=== PATIENT | female | born 1970 | race Caucasian/White ===

== ENCOUNTER → 2016-09-29 | Outpatient (CLI) | payer BC, OTHER ==
[2016-09-29 18:02] LABS: BASO % 0.4 %; BASO ABS # 0.04 K/uL (0-0.2); COMPLETE YES; EOS % 1.8 %; HEMATOCRIT 47.3 % (37-47); IG% 0.4 %; LYMPH % 33.3 %; LYMPH ABS # 3.16 K/uL (1.2-3.4); MEAN CELL VOLUME 92.6 fL (80-100); MEAN CORPUSCULAR HEMOGLOBIN 31.5 pg (25-34); MEAN PLATELET VOLUME 10.2 fL (7.4-10.4); MONO % 5.1 %; PLATELET COUNT 263 K/uL (130-400); RED BLOOD COUNT 5.11 M/uL (4.2-5.4); WHITE BLOOD COUNT 9.48 K/uL (4.8-10.8)
[2016-09-29 18:06] LABS: ALT/SGPT 34 U/L (12-78); AST/SGOT 12 U/L (15-37); BLOOD UREA NITROGEN 11 mg/dl (7-18); BUN/CREATININE RATIO 12.4 (10-20); CALCIUM 8.8 mg/dl (8.5-10.1); CARBON DIOXIDE 29 mmol/L (21-32); CHLORIDE 105 mmol/L (98-107); CHOLESTEROL 166 mg/dl (0-200); CREATININE 0.88 mg/dl (0.60-1.20); GLUCOSE 245 mg/dl (70-99); POTASSIUM 4.1 mmol/L (3.5-5.1); SODIUM 139 mmol/L (136-145)
[2016-09-29 18:14] LABS: ALB/GLOB RATIO 1.3 (0.9-2); ALKALINE PHOSPHATASE 106 U/L (45-117); CHOLESTEROL/HDL RATIO 3.8; HDL CHOLESTEROL 44 mg/dl; LDL CHOLESTEROL CALCULATED 75 mg/dl; TRIGLYCERIDES 235 mg/dl (0-150); VERY LOW DENSITY LIPOPROT CALC 47 mg/dl
[2016-09-29 18:20] LABS: RATIO 9.9 mcg/mg (0-30.0)
[2016-09-30 06:19] LABS: ESTIMATED AVERAGE GLUCOSE 223 mg/dl; HA1C FLAG Normal (Normal)
== END | disposition home or self-care (01) ==
LOC: C.LABMFLN 11:34
PROVIDERS: ATTEND Family Medicine
DX: E11.9 Type 2 diabetes mellitus without complications (principal); E78.5 Hyperlipidemia, unspecified

== ENCOUNTER → 2017-05-14 | Outpatient (CLI) | payer BC ==
[2017-05-14 18:31] LABS: BLOOD UREA NITROGEN 10 mg/dl (7-18); BUN/CREATININE RATIO 11.7 (10-20); CALCIUM 9.3 mg/dl (8.5-10.1); CARBON DIOXIDE 28 mmol/L (21-32); CHLORIDE 99 mmol/L (98-107); CREATININE 0.82 mg/dl (0.60-1.20); GLUCOSE 263 mg/dl (70-99); PHOSPHORUS 3.1 mg/dl (2.5-4.9); POTASSIUM 4.4 mmol/L (3.5-5.1); SODIUM 132 mmol/L (136-145)
[2017-05-15 07:37] LABS: ESTIMATED AVERAGE GLUCOSE 243 mg/dl; HA1C FLAG Normal (Normal)
== END | disposition home or self-care (01) ==
LOC: C.LABMFLN 15:43
PROVIDERS: ATTEND Family Medicine
DX: E11.9 Type 2 diabetes mellitus without complications (principal)

== ENCOUNTER → 2017-06-19 | Day surgery (SDC) | payer BC ==
[2017-05-30 13:47] VITALS: Ht 165.1 cm; Wt 121.4 kg
[~2017-06-19] VITALS: Ht 165.1 cm; Wt 121.4 kg
[~2017-06-19] MED LIST: ATOR10TA82 PO; ATROPINE SULFATE 0.1 MG/ML 5ML SYR IV PRN; BUPIVACAINE 0.5 % 5 MG/1 ML PF 10ML VIAL ONE; CEFAZOLIN 3000MG IV PUSH 15 ML IV SCH; CEFAZOLIN SOD 1000MG/5 ML IV PUSH IV ONE; CEFAZOLIN SOD 2000MG/10 ML IV PUSH IV ONE; CHN/1 PO; CLX/20 PO; DULA1INJ SQ; FENTANYL CITRATE INJ 50 MCG/1 ML 2 ML VIAL ONE; LACTATED RINGER'S 1000ML 1,000 ML IV SCH; LIDOCAINE HCL 1% 20 ML VIAL ONE; LISI-461 PO; MIDAZOLAM HCL 1 MG/ML 2ML VIAL ONE; ONDANSETRON INJ 2 MG/ML 2 ML VIAL IV PRN; OXYCODONE/ACETAMINOPHEN 5-325 TAB PO PRN; PROPOFOL IV EMULSION 10 MG/ML 20 ML VIAL IV ONE; SITA100T3 PO; SODIUM CHLORIDE 0.9% 1000ML 1,000 ML IV SCH; TRAM-10 PO
--- NOTE | 2017-06-19 07:16 | History & Physical Bridge - [place] ---
H&P Re-Evaluation Bridge Note: I have examined the patient, reviewed the History & Physical and in the interval since the performance of the History & Physical I have noted the following changes of clinical significance: No changes noted
--- NOTE | 2017-06-19 08:07 | [facility] Post Operative Brief Note ---
Immediate Operative Summary Operative Date Jun 19, 2017. Pre-Operative Diagnosis Right Carpal Tunnel Syndrome Post-Operative Diagnosis Same Procedure(s) Performed Right Carpal Tunnel Release Surgeon Dr. Helen Prakash Relocation Services Specialist Surgeon(s) Alonzo Thapa PA-c Estimated Blood Loss 0 Findings ABOVE Specimens None Anesthesia LOCAL IV SEDATION Complication(s) None Disposition
[2017-06-19 08:11] VITALS: TEMP 36.2
--- NOTE | 2017-06-19 08:11 | Discharge Instructions-SurgCtr ---
Discharge Instructions Date of Service Jun 19, 2017. Visit Reason for Visit: Right Carpal Tunnel Syndrome Discharge Discharge Diagnosis / Problem: SAME ABOVE Discharge Goals Goal(s): Decrease discomfort, Improve function Medications Stopped Medications Name(s): Mar Last dose Sunday. Activity Recommendations Activity Limitations: as noted below Lifting Limitations: until after follow-up appointment Exercise/Sports Limitations: until after follow-up appointment Shower/Bathe: keep incision dry Anesthesia . Post Anesthesia Instructions: If you have had General Anesthesia or IV Sedation: * Do not drive today. * Resume driving when surgeon permits. * Do not make important decisions or sign legal documents today. * Call surgeon for: 1. Temperature elevations greater than 101 degrees F. 2. Uncontrollable pain. 3. Excessive bleeding. 4. Persistent nausea and vomiting. 5. Medication intolerance (nausea, vomiting or rash). * For nausea and vomiting use only clear liquids such as: tea, soda, bouillon until nausea subsides, then gradually increase diet as tolerated. * If you have any concerns or questions, call your surgeon's office. If physician is unavailable and it is an emergency, call 911 or go to the nearest emergency room. . Instructions / Follow-Up Instructions / Follow-Up MEDICATIONS: * Resume previous medications unless instructed otherwise by your surgeon. * Always take pain medication on a full stomach or with food to avoid upset stomach. * Do not drink alcohol or drive while taking narcotics. * Ibuprofen or Tylenol may be taken if narcotic not needed. SPECIAL CARE INSTRUCTIONS: __ None _X_ Keep extremity elevated and iced x 48 hours; apply ice 20-30 minutes 8-10 times/day. May remove at night. __ Sling __24 hrs/day __ Remove at night __ Shoulder Immobilizer __ 24 hrs/day __ Remove at night _X_ Dressing _X_ Maintain until seen in office, may shower with plastic over site __ Remove dressings in 24-48 hours and then may shower __ Cover incisions with band-aids after showering __ Do not remove steri-strips Call physician if chills or temperature rises above 102 degrees or pain unrelieved by prescribed pain medications at . . Diet Recommendations Home Diet: resume previous diet Procedures Procedures Performed: Right Carpal Tunnel Release Pending Studies Studies pending at discharge: no Medical Emergencies . Who to Call and When: Medical Emergencies: If at any time you feel your situation is an emergency, please call 911 immediately. . Non-Emergent Contact Non-Emergency issues call your: Primary Care Provider . . "Provider Documentation" section prepared by Alberto Thapa. .
--- NOTE | 2017-06-19 08:24 | OPERATIVE REPORT ---
DATE OF OPERATION: 06/19/2017 PREOPERATIVE DIAGNOSIS: Right carpal tunnel syndrome. POSTOPERATIVE DIAGNOSIS: Same. PROCEDURE: Decompression median nerve, released transverse carpal ligament, right wrist. SURGEON: Thomas Prakash MD. BRIDGE INSTRUCTOR: Alberto Thapa PA-C. ANESTHESIOLOGIST: Florencio Mondragon MD. ANESTHESIA: Local with IV sedation. DRAINS: None. COMPLICATIONS: None. CONDITION: The patient tolerated the procedure well and returned to recovery in apparent satisfactory condition. INDICATIONS FOR SURGERY: Devora is a 47-year-old female who has had increasing pain, numbness and tingling in her right hand consistent with carpal tunnel complaints. We went over treatment options and elected to go ahead and proceed with surgery. Procedure, expected outcomes and side effects were all explained in detail. PROCEDURE: The patient was taken to the OR at which time she was placed supine on the operating table. The right hand was prepped and draped in the usual sterile fashion for this surgery. The anticipated incision site was infiltrated with 1% Xylocaine. A forearm tourniquet was placed on the arm and tourniquet was placed up to 250 mmHg. Incision was made vertically over the transverse carpal tunnel ligament. Dissection was done down until the palmar fascia was identified and divided with a 15-blade. The transverse carpal ligament was identified and also divided with the 15-blade and upbiting scissors. A small portion of the forearm fascia was divided also. Electrocautery was used to control any areas of bleeding. The nerve was freed up from any scar tissue and adequately decompressed. The wound then was copiously irrigated. It was closed then with interrupted 4-0 nylon sutures. Marcaine without Epinephrine was placed in the skin edges. It was closed in a layered fashion. We placed a sterile dressing of Xeroform, 4 x 4, volar splint, and an Donis bandage. DISPOSITION: The patient was returned back to the recovery room in apparent satisfactory condition. I attest to the content of the Intraoperative Record and any orders documented therein. Any exception s are noted below.
[2017-06-19 08:35] VITALS: BP 112/78; PULSE 84; O2SAT 94
--- NOTE | 2017-06-19 08:43 | Anesthesia Progress Nt - [facility] ---
Anesthesia Post Op Note Date & Time Jun 19, 2017 at 08:43 Vital Signs Pain Intensity: 0 Vital Signs Past 12 Hours Date Time Temp Pulse Resp B/P (MAP) Pulse Ox O2 Delivery O2 Flow Rate FiO2 06/19/17 08:35 84 16 112/78 (89) 94 Room Air 06/19/17 08:11 36.2 91 16 98/56 (70) 95 Room Air 06/19/17 07:30 36.8 96 16 132/78 (96) 96 Room Air Notes Mental Status: alert / awake / arousable, participated in evaluation Pt Amnestic to Procedure: Yes Nausea / Vomiting: adequately controlled Pain: adequately controlled Airway Patency, RR, SpO2: stable & adequate BP & HR: stable & adequate Hydration State: stable & adequate Anesthetic Complications: no major complications apparent
== END | disposition home or self-care (01) ==
LOC: X.SURG 06:54
PROVIDERS: ATTEND Orthopaedic Surgery
DX: G56.01 Carpal tunnel syndrome, right upper limb (principal); I10 Essential (primary) hypertension; E11.9 Type 2 diabetes mellitus without complications; E78.00 Pure hypercholesterolemia, unspecified; Z91.040 Latex allergy status; Z90.710 Acquired absence of both cervix and uterus; Z98.890 Other specified postprocedural states

== ENCOUNTER → 2017-07-17 | Day surgery (SDC) | payer BC ==
[2017-07-03 09:50] VITALS: Ht 165.1 cm; Wt 121.4 kg
[~2017-07-17] VITALS: Ht 165.1 cm; Wt 121.4 kg
[~2017-07-17] MED LIST changes: -CEFAZOLIN 3000MG IV PUSH 15 ML IV SCH; +CEFAZOLIN 3000MG IV PUSH 22.5 ML IV SCH; -CEFAZOLIN SOD 1000MG/5 ML IV PUSH IV ONE; -CEFAZOLIN SOD 2000MG/10 ML IV PUSH IV ONE; +EpHEDrine SULFATE INJ 50 MG/ML AMP IV PRN; +LIDOCAINE HCL 2% 2 ML VIAL (20MG/ML) ONE; +ONDANSETRON INJ 2 MG/ML 2 ML VIAL ONE
--- NOTE | 2017-07-17 10:10 | [facility] Post Operative Brief Note ---
Immediate Operative Summary Operative Date Jul 17, 2017. Pre-Operative Diagnosis Left Carpal Tunnel Syndrome Post-Operative Diagnosis Same Procedure(s) Performed Left Carpal Tunnel Release Surgeon Dr. Prakash Transcripter Surgeon(s) Alonzo Thapa PA-C Estimated Blood Loss 0 ml Findings Consistent with Post-Op Diagnosis Specimens None Drains None Anesthesia Type MAC Disposition Disposition:
--- NOTE | 2017-07-17 10:13 | Discharge Instructions-SurgCtr ---
Discharge Instructions Date of Service Jul 17, 2017. Visit Reason for Visit: Left Carpal Tunnel Syndrome Discharge Discharge Diagnosis / Problem: SAME ABOVE Discharge Goals Goal(s): Decrease discomfort, Improve function Activity Recommendations Activity Limitations: as noted below Lifting Limitations: until after follow-up appointment Exercise/Sports Limitations: until after follow-up appointment Shower/Bathe: keep incision dry Anesthesia . Post Anesthesia Instructions: If you have had General Anesthesia or IV Sedation: * Do not drive today. * Resume driving when surgeon permits. * Do not make important decisions or sign legal documents today. * Call surgeon for: 1. Temperature elevations greater than 101 degrees F. 2. Uncontrollable pain. 3. Excessive bleeding. 4. Persistent nausea and vomiting. 5. Medication intolerance (nausea, vomiting or rash). * For nausea and vomiting use only clear liquids such as: tea, soda, bouillon until nausea subsides, then gradually increase diet as tolerated. * If you have any concerns or questions, call your surgeon's office. If physician is unavailable and it is an emergency, call 911 or go to the nearest emergency room. . Instructions / Follow-Up Instructions / Follow-Up MEDICATIONS: * Resume previous medications unless instructed otherwise by your surgeon. * Always take pain medication on a full stomach or with food to avoid upset stomach. * Do not drink alcohol or drive while taking narcotics. * Ibuprofen or Tylenol may be taken if narcotic not needed. SPECIAL CARE INSTRUCTIONS: __ None _X_ Keep extremity elevated and iced x 48 hours; apply ice 20-30 minutes 8-10 times/day. May remove at night. __ Sling __24 hrs/day __ Remove at night __ Shoulder Immobilizer __ 24 hrs/day __ Remove at night _X_ Dressing _X_ Maintain until seen in office, may shower with plastic over site __ Remove dressings in 24-48 hours and then may shower __ Cover incisions with band-aids after showering __ Do not remove steri-strips Call physician if chills or temperature rises above 102 degrees or pain unrelieved by prescribed pain medications at . . Diet Recommendations Home Diet: no limitations Procedures Procedures Performed: Left Carpal Tunnel Release Pending Studies Studies pending at discharge: no Medical Emergencies . Who to Call and When: Medical Emergencies: If at any time you feel your situation is an emergency, please call 911 immediately. . Non-Emergent Contact Non-Emergency issues call your: Primary Care Provider . . "Provider Documentation" section prepared by Alberto Thapa. .
--- NOTE | 2017-07-17 10:24 | OPERATIVE REPORT ---
DATE OF OPERATION: 07/17/2017 PREOPERATIVE DIAGNOSIS: Left carpal tunnel syndrome. POSTOPERATIVE DIAGNOSIS: Left carpal tunnel syndrome. PROCEDURE: Decompression median nerve release transverse carpal ligament, left wrist. SURGEON: Thomas Prakash MD DIRECTOR OF AGRICULTURE: Alberto Thapa PA-C. ANESTHESIOLOGIST: Dr. Parker. ANESTHESIA: Local with IV sedation. DRAINS: None. COMPLICATIONS: None. CONDITION: The patient tolerated the procedure well, returned to the recovery room in apparent satisfactory condition. INDICATIONS FOR SURGERY: Devora is a 47-year-old female who presents back now with left carpal tunnel complaints. We did a right hand about 6-7 weeks ago, presents to have left hand done. Procedure, expected outcomes and side effects were all explained in detail. PROCEDURE: The patient was taken to the OR at which time she was placed supine on the operating table. The left hand was prepped and draped in the usual sterile fashion for this surgery. The anticipated incision site was infiltrated with 1% Xylocaine. A forearm tourniquet was placed on the arm and tourniquet was placed up to 250 mmHg. Incision was made vertically over the transverse carpal tunnel ligament. Dissection was done down until the palmar fascia was identified and divided with a 15-blade. The transverse carpal ligament was identified and also divided with the 15-blade and upbiting scissors. A small portion of the forearm fascia was divided also. Electrocautery was used to control any areas of bleeding. The nerve was freed up from any scar tissue and adequately decompressed. The wound then was copiously irrigated. It was closed then with interrupted 4-0 nylon sutures. Marcaine without Epinephrine was placed in the skin edges. It was closed in a layered fashion. We placed a sterile dressing of Xeroform, 4 x 4, volar splint, and an Donis bandage. DISPOSITION: The patient was returned back to the recovery room in apparent satisfactory condition. I attest to the content of the Intraoperative Record and any orders documented therein. Any exception s are noted below.
--- NOTE | 2017-07-17 10:25 | Anesthesia Progress Nt - [facility] ---
Anesthesia Post Op Note Date & Time Jul 17, 2017 at 10:25 Vital Signs Pain Intensity: 0 Vital Signs Past 12 Hours Date Time Temp Pulse Resp B/P (MAP) Pulse Ox O2 Delivery O2 Flow Rate FiO2 07/17/17 10:13 36.1 87 16 122/77 (92) 94 Room Air 07/17/17 08:44 36.5 79 16 134/89 (104) 95 Room Air Notes Mental Status: alert / awake / arousable, participated in evaluation Pt Amnestic to Procedure: Yes Nausea / Vomiting: adequately controlled Pain: adequately controlled Airway Patency, RR, SpO2: stable & adequate BP & HR: stable & adequate Hydration State: stable & adequate Anesthetic Complications: no major complications apparent
[2017-07-17 10:35] VITALS: BP 125/80; PULSE 80; TEMP 36.8; O2SAT 95
== END | disposition home or self-care (01) ==
LOC: X.SURG 08:12
PROVIDERS: ATTEND Orthopaedic Surgery
DX: G56.02 Carpal tunnel syndrome, left upper limb (principal); E11.9 Type 2 diabetes mellitus without complications; E66.9 Obesity, unspecified; I10 Essential (primary) hypertension; F17.200 Nicotine dependence, unspecified, uncomplicated; Z90.710 Acquired absence of both cervix and uterus

== ENCOUNTER 2025-05-12 13:33 | Inpatient (IN) ==
[2025-05-12] MEDS ORDERED: VANCOMYCIN CONSULT ACTIVE PRN (13:43)
[2025-05-12] MEDS: cefTRIAXone SODIUM 2,000 MG/50 ML BAG IV STA (14:03)
[2025-05-12 14:15] LABS: Hematocrit (blood only) 46.1 % (37.0-47.0); Hemoglobin 15.9 g/dL (12.0-16.0); Immature Granulocytes # (auto) 0.06 K/uL (0.01-0.20); Immature Granulocytes % (auto) 0.6 %; Mean Corpuscular Hemoglobin 31.8 pg (25.0-34.0); Mean Corpuscular Volume 92.2 fL (80.0-100.0); Platelet Count 227 K/uL (130-400); RDW Standard Deviation 42.0 fL (36.4-46.3); Red Blood Count 5.00 M/uL (4.20-5.40); White Blood Count 9.37 K/ul (4.8-10.8)
--- NOTE | 2025-05-12 14:25 | Emergency Department Note ---
Impression & Plan Osteomyelitis, Necrosis of toe, Dry gangrene ED Provider Note NAME: BLAZE CHU AGE: 55 SEX: F : 1970 ARRIVES VIA: Walk-In INFORMANT: Patient, daughter ED PROVIDER(S): Braxton Ramirez DO CHIEF COMPLAINT: Toe necrosis HPI: This is a 55-year-old female with the PMHx of hypertension, hyperlipidemia, IDDM2, GERD and anxiety presenting to [facility] for further evaluation of necrosis of the toe. Patient is accompanied by her daughter who provide additional history. Patient states that she was recently in the emergency department. She ultimately left AGAINST MEDICAL ADVICE. She states that she has been on antibiotics for her necrosis of her toe. She states some of the redness is seem to worsen. She does have mild pain. Patient states that she had to take care of things at work prior to arranging an patient hospital stay. She is agreeable to stay in the hospital at this time.. They deny fever or chills. No cough or congestion. Denies chest pain or palpitations. No shortness of breath. They deny abdominal pain, nausea and vomiting. No urinary complaints. No recent changes in bowel movements. Patient denies recent changes in medications or OTC supplements. Patient offers no other complaints, today. ADDITIONAL HISTORY OBTAINED: Per HPI Chronic Medical/Social Conditions Affecting Care: Per HPI PAST MEDICAL HISTORY: See Below PAST SURGICAL HISTORY: See Below FAMILY HISTORY: See Below SOCIAL HISTORY: See Below HOME MEDICATIONS: See Below ALLERGIES: See Below VITALS: See Below PHYSICAL EXAMINATION: GENERAL: Sitting up in bed, alert, well appearing, well nourished, no distress, non-toxic EYE EXAM: normal conjunctiva. OROPHARYNX: no exudate, no erythema, lips, buccal mucosa, and tongue normal and mucous membranes are moist NECK: supple, no nuchal rigidity, no adenopathy, non-tender LUNGS: Clear to auscultation. Normal chest wall mechanics HEART: no murmurs, tachycardic rate, regular rhythm ABDOMEN: abdomen soft, non-tender, no masses, no rebound or guarding. BACK: Back is symmetrical on inspection and there is no deformity, no midline tenderness, no CVA tenderness. SKIN: no rashes and no bruising UPPER EXTREMITIES: upper extremities are grossly normal. LOWER EXTREMITIES: No pitting edema. There is evidence of dry necrotic tissue of the right distal second toe. Erythema more proximally extending into the dorsal aspect of the foot. Extremity is neurovascularly intact. NEURO EXAM: Normal sensorium, GCS 15, normal speech MEDICAL DECISION MAKING: Differential diagnoses includes but not limited to osteomyelitis, cellulitis, dry gangrene, diabetic ulceration, vascular disease, electrolyte derangements, dehydration In summary, this is a 55 year old female who presented with worsening toe necrosis. Differential as above. Nursing notes and pertinent past medical records reviewed. Vital signs reviewed and the patient is mildly hypertensive and tachycardic but otherwise afebrile and hemodynamically stable. History and presentation revealed recent emergency department evaluation. Reviewed documentation. Patient left AGAINST MEDICAL ADVICE. She was discharged on a course of antibiotics. She was unwilling to stay in the hospital. Physical examination revealed as above. As a result of my initial evaluation, the patient has dry gangrene with concerns for possible overlying cellulitis. Patient could have osteomyelitis of the toe as evident on prior MRI as well. Will cover with broad-spectrum antibiotics for worsening infection including ceftriaxone and vancomycin. IV access was established and the patient was placed on CCRM. Therapeutics ordered include IV Abx and Toradol. Diagnostics interpreted by me include cardiac monitoring as listed below: -Cardiac Monitoring: An order was placed for continuous cardiac monitoring. The monitor shows a rate of 80-100s with regular rhythm. Patient completed laboratory studies and imaging. Results independently interpreted by me are No significant leukocytosis or anemia. ESR has up trended since last drawl. CRP is stable. No electrolyte derangements or kidney dysfunction. LFTs are normal. Did not feel that repeat imaging was necessary as she recently had vascular imaging as well as an MRI. The patient was managed with IV Toradol for pain. Patient was also given fluid resuscitation. Patient was discharged on a course of ciprofloxacin and doxycycline when she refused to stay in the hospital. Patient has been taking these medications but did not take her doses today. Will give the patient IV antibiotics to cover for osteomyelitis and cellulitis. Plan for IV ceftriaxone and vancomycin. Patient was discussed with podiatry. Podiatry is recommending amputation on . Will plan to admit the patient for IV antibiotics until her surgical intervention. Ultimately, the decision was made to admit the patient for dry gangrene of the toe with concerns for possible superimposed cellulitis and/or osteomyelitis. I discussed the case with the hospitalist service via telephone/TigerText and they are agreeable to admit the patient to their services. Based on the above, including the patient's age, coexisting illnesses, labs, imaging, and exam findings the decision to treat as an inpatient. I discussed the patient with the hospitalist team who recommended admission to their services. They received the medications, treatments, interventions indicated above and their condition remained stable. I discussed my findings with the patient and their family and they understand and agree with the treatment plan. All patient / family questions were answered to their satisfaction. Case discussed with consultants including podiatry, Dr. Castaneda. He plans for tentative OR on 05/14. Consults/Care Managements Discussions: Per MDM ER treatment provided: See above Procedures:none Critical Care: None The chart was completed utilizing W4 voice recognition software. Grammatical errors, random word insertions, pronoun errors, and incomplete sentences are an occasional consequence of this system due to software limitations, ambient noise, and hardware issues. Any formal questions or concerns about the content, text, or information contained within the body of this dictation should be directly addressed to the physician for clarification. Past Med/Surg History Problem List (Updated 05/12/25 @ 20:06 by Braxton Ramirez DO) Dry gangrene (Acute) Osteomyelitis (Acute) Infection of toe (Acute) Necrosis of toe (Acute) Type 2 diabetes mellitus with diabetic retinopathy Hypertension, essential, benign (Acute) Hyperlipidemia (Acute) Tobacco use GERD without esophagitis Anxiety (Acute) Obesity (Acute) S/P cardiac catheterization (~10/18/22) mild nonobstructive CAD Allergic rhinitis Recurrent cold sores (Acute) Medical History (Updated 05/12/25 @ 20:06 by Braxton Ramirez DO) Cardiovascular stress test abnormal EKG, abnormal Chest pain Bee sting allergy Diverticular disease Depression Anxiety Hypertension Hyperlipidemia Surgical History (Updated 11/07/22 @ 09:11 by MILLIE Calderon) History of shoulder surgery Hx of hand surgery History of ganglion cyst MULTIPLE CYST EXCISIONS History of bilateral tubal ligation History of section History of hysterectomy Family History Mother Diverticulitis COPD (chronic obstructive pulmonary disease) Thyroid disease Myocardial infarction Coronary heart disease Father Hypertension Hyperlipidemia Coronary heart disease Prostate cancer Peripheral vascular disease Social History Smoking Status: Current every day smoker Tobacco Type: Cigarettes Age Started Using Tobacco: 16; packs per day: 50; Cigarettes Per Day: 1/2 pack; Second Hand Exposure: No; Do You Dip or Chew Tobacco: No; Hx Alcohol Use: Yes Hx Substance Use: No Preferred Language: Andorran Communication Ability: Effective Cap Cutter Required: No Beliefs That Will Affect Care: None Current Living Situation: Family Current Living Situation Comment: kids and grandson Other Information That Helps Us Care for You: No Feels Safe at Home: Yes Safety Concerns: Feels Safe At This Time Assistive Devices: Glasses Allergies Allergies Allergy/AdvReac Type Severity Reaction Status Date / Time latex Allergy Intermediate REDNESS,RASH,LOCALIZED Verified 04/28/25 13:00 HOT FEELING metformin AdvReac Diarrhea Verified 04/28/25 13:00 Home Meds Home Medications Medication Instructions Recorded Confirmed insulin lispro protamine-lispro 30 unit subcut BID 05/12/25 05/12/25 100 unit/mL (50-50) subcutaneous pen (Humalog Mix 50-50 KwikPen) Previous Rx's Medication Instructions Recorded blood sugar diagnostic (Blood #100 ea 05/25/20 Glucose Test strips) pen needle, diabetic 32 gauge x #100 ea 12/08/20 5/32" (BD Ultra-Fine Sari Pen Needle) epinephrine 0.3 mg/0.3 mL 0.3 mg (0.3 mL) IM ONCE PRN 03/08/22 injection, auto-injector (EpiPen) anaphylaxis #1 ea nitroglycerin 0.4 mg sublingual 0.4 mg sublingual Q5M PRN chest 09/25/22 tablet (Nitrostat) pain #25 tabs Results & Data (ED) Vital Signs Vital Signs - 24 hr 05/12/25 13:33 05/12/25 13:33 05/12/25 14:06 Temperature 36.6 C Temperature Source Temporal Artery Scan Pulse Rate 116 H 98 H Respiratory Rate 18 18 Blood Pressure 185/101 H Blood Pressure Mean 129 Pulse Oximetry 99 Sepsis Recent Fever Within 48 Hours No Sepsis New/Unexplained Change in Mental Status N/A Sepsis Action Taken by Nursing No Action Required Laboratory Data 05/12/25 14:01 05/12/25 14:01 Lab Results 05/12/25 Range/Units 14:01 WBC 9.37 (4.8-10.8) K/ul RBC 5.00 (4.20-5.40) M/uL Hgb 15.9 (12.0-16.0) g/dL Hct 46.1 (37.0-47.0) % MCV 92.2 (80.0-100.0) fL MCH 31.8 (25.0-34.0) pg MCHC 34.5 (32.0-36.0) g/dL RDW Std Deviation 42.0 (36.4-46.3) fL RDW Coeff of Phylicia 12.5 (11.5-14.5) % Plt Count 227 (130-400) K/uL MPV 9.4 (9.4-12.4) fL Immature Gran % (Auto) 0.6 % Neut % (Auto) 71.2 % Lymph % (Auto) 20.6 % Corson % (Auto) 6.2 % Eos % (Auto) 1.1 % Baso % (Auto) 0.3 % Neut # (Auto) 6.67 H (1.40-6.50) K/uL Lymph # (Auto) 1.93 (1.20-3.40) K/uL Corson # (Auto) 0.58 (0.11-0.59) K/uL Eos # (Auto) 0.10 (0.00-0.50) K/uL Baso # (Auto) 0.03 (0.00-0.20) K/uL Immature Gran # (Auto) 0.06 (0.01-0.20) K/uL ESR 42 H (0-30) mm/hr Sodium 137 (136-145) mmol/L Potassium 3.9 (3.5-5.1) mmol/L Chloride 103 (98-107) mmol/L Carbon Dioxide 26 (21-32) mmol/L Anion Gap 8 (3-11) BUN 7 (6-23) mg/dl Creatinine 0.71 (0.6-1.2) mg/dl Est Cr Clr Drug Dosing 120.5 ml/min eGFR 99.11 BUN/Creatinine Ratio 9.9 L (10-20) Glucose 177 H (70-99(Fasting)) mg/dl Calcium 9.1 (8.6-10.3) mg/dl Total Bilirubin 0.5 (0.2-1.0) mg/dl AST 19 (13-39) U/L ALT 22 (7-52) U/L Alkaline Phosphatase 80 (34-104) U/L C-Reactive Protein 3.01 H (0-0.5) mg/dl Total Protein 6.9 (6.0-8.3) gm/dl Albumin 4.0 (3.4-5.0) gm/dl Globulin 2.9 (2.5-4.0) gm/dl Albumin/Globulin Ratio 1.4 (0.9-2) Administered Medications Sodium Chloride (Nss) 1,000 mls @ 80 mls/hr IV .[id number] [facility] Stop: 05/15/25 15:29 Last Admin: 05/12/25 19:21 Dose: 80 mls/hr Documented By: ROSS Insulin Aspart (Insulin Aspart Per Unit Charge) 0 units [facility] Stop: 06/11/25 16:29 Last Admin: 05/12/25 19:03 Dose: Not Given Documented By: ROSS Co-signed By: MIGUEL Lisinopril (Lisinopril 10 Mg Tab) 10 mg PO [facility] Stop: 06/11/25 17:59 Last Admin: 05/12/25 19:24 Dose: 10 mg Documented By: ROSS Nicotine (Nicotine 14 Mg/24 Hr Patch) 1 patch TD [facility] Stop: 06/11/25 17:59 Last Admin: 05/12/25 19:24 Dose: 1 patch Documented By: SMN Discontinued Medications Ceftriaxone Sodium (Rocephin) 2,000 mg in 50 mls @ 100 mls/hr IV NOW STA Stop: 05/12/25 14:12 Last Infusion: 05/12/25 15:00 Dose: Infused Documented By: [facility] Admin: 05/12/25 14:03 Dose: 100 mls/hr Documented By: YADIRA Vancomycin HCl 2,750 mg/ (Sodium Chloride) 555 mls @ 200 mls/hr IV NOW ONE Stop: 05/12/25 16:30 Last Infusion: 05/12/25 18:02 Dose: Infused Documented By: [facility] Admin: 05/12/25 14:47 Dose: 200 mls/hr Documented By: ALEYDAK Parenteral Electrolytes (Plasma-Lyte A Ph 7.4) 1,000 mls @ 999 mls/hr IV .Q1H1M ONE Stop: 05/12/25 15:04 Last Infusion: 05/12/25 17:55 Dose: Infused Documented By: [facility] Admin: 05/12/25 14:46 Dose: 999 mls/hr Documented By: CURT Cefepime HCl (Maxipime 2000mg) 2,000 mg in 20 mls @ 5 mls/min IV Q12H LIEN; Protocol Stop: 05/19/25 15:29 Last Admin: 05/12/25 18:02 Dose: Not Given Documented By: [facility] Metronidazole (Flagyl) 500 mg in 100 mls @ 100 mls/hr IV Q8H LIEN; Protocol Stop: 05/19/25 17:59 Last Admin: 05/12/25 19:26 Dose: Not Given Documented By: ROSS Cefepime HCl (Maxipime 2000mg) 2,000 mg in 20 mls @ 5 mls/min IV Q12H LIEN; Protocol Stop: 05/19/25 17:59 Last Admin: 05/12/25 19:26 Dose: Not Given Documented By: ROSS Piperacillin Sod/Tazobactam Sod (Zosyn) 4.5 gm in 100 mls @ 200 mls/hr IV NOW STA; Protocol Stop: 05/12/25 19:22 Last Infusion: 05/12/25 19:59 Dose: Infused Documented By: Admin: 05/12/25 19:19 Dose: 200 mls/hr Documented By: ROSS Ketorolac Tromethamine (Ketorolac Tromethamine 15 Mg/Ml Vial) 10 mg IV NOW ONE Stop: 05/12/25 14:05 Last Admin: 05/12/25 14:46 Dose: 10 mg Documented By: ALEYDAK Discharge Plan Visit Data Chief Complaint: Toe Injury/Pain Stated Complaint: R 2ND TOE NECROTIC ED Provider: Braxton Ramirez Discharge Problem: Osteomyelitis, Necrosis of toe, Dry gangrene Patient Disposition: Admitted As Inpatient Condition: Serious Discharge Instructions Interventions: ED Discharge Assessment Last Done: 05/12/25 18:48
[2025-05-12 14:34] LABS: Alanine Aminotransferase 22.0 U/L (7-52); Albumin Globulin Ratio 1.4 (0.9-2); Albumin Level 4.0 gm/dl (3.4-5.0); Alkaline Phosphatase 80.0 U/L (34-104); Anion Gap 8.0 (3-11); Bilirubin,Total 0.5 mg/dl (0.2-1.0); Blood Urea Nitrogen 7.0 mg/dl (6-23); Calcium 9.1 mg/dl (8.6-10.3); Carbon Dioxide 26.0 mmol/L (21-32); Chloride 103.0 mmol/L (98-107); Creatinine Clr Calc Pharmacy 120.5 ml/min; Globulin 2.9 gm/dl (2.5-4.0); Glucose 177.0 mg/dl (70-99(Fasting)); Potassium 3.9 mmol/L (3.5-5.1); Sodium 137.0 mmol/L (136-145); Total Protein 6.9 gm/dl (6.0-8.3)
--- NOTE | 2025-05-12 14:44 | History & Physical Report ---
Date of Service May 12, 2025 Assessment & Plan (1) Osteomyelitis: (2) Infection of toe: (3) Necrosis of toe: (4) Type 2 diabetes mellitus with diabetic retinopathy: (5) Hypertension, essential, benign: (6) Hyperlipidemia: (7) Tobacco use: (8) GERD without esophagitis: (9) Anxiety: Plan Pt is a 55 y/o F w/ a PMHx significant for T2DM w/ retinopathy, HTN, HLD, Current Tobacco Use, GERD, CAD s/p catheterization October 2022, Allergic Rhinitis, Anxiety, and recurrent Cold Sores who presents c/o worsening right second toe pain. Pt initially seen in ED 05/10 where MRI revealed Diffuse marrow edema of the distal phalanx of the second toe and tip of the big toe distal phalanx with surrounding soft tissue edema is seen, which could be osteomyelitis. During that same ED visit a Doppler US revealed plaque formation in RLE resulting in stenosis, particularly w/ the popliteal artery resulting in elevated BF velocity. Pt was d/c home on Cipro and Doxy as well as Oxycodone despite encouraged hospital say. Pt represented on 05/12 for hospital admission. #Osteomyelitis Rt second Toe - -Podiatry Consulted; Planning for toe amputation on 05/14 -IVF NSS -IV Vancomycin, managed by pharmacy -IV Zosyn 4.5 GM Q8H -Pain Management: Tylenol 650mg PO mild/mod pain, prn severe pain -PT/OT Consulted -CBC, CMP, CRP, Procal in AM #T2DM | Diabetic Retinopathy - HbA1c on 08/23/21 -Hold pts home insulin regimen -Carb Consistent Diet, Should be made NPO midnight 05/13 -Basal Insulin 20u BID; SSI (BSG 110-150, CF 15, CR10) -Pharmacy Glycemic Consult -HbA1C in AM #Current Tobacco Use - /2 PPD -Nicotine Patch Daily #GERD - no acute concerns -Famotidine QAM #HTN | HLD - -Continue Lisinopril 10mg, Atorvastatin 40mg #Anxiety | Difficulty Sleeping - no acute concerns -Continue Citalopram -Melatonin 3mg HS prn VTE Proph: SCDs, Chemoprophylaxis deferred d/t upcoming procedure Dispo: Admit Med/Tele Pt notes that she wasn't regularly taking home meds d/t loss of insurance and would like to have medications filled upon discharge. F/U appt scheduled for Jun, per pt History of Present Illness Chief Complaint: Osteomyelitis R second toe Primary Care Provider: Ivory Tyler MD Pt is a 55 y/o F w/ a PMHx significant for T2DM w/ retinopathy, HTN, Current Tobacco Use, GERD, CAD s/p catheterization October 2022, Allergic Rhinitis, Anxiety, and recurrent Cold Sores who presents c/o worsening right second toe pain. Pt states that she began to experience toe pain appx 2.5 wks [employer]. Pt states that at that time she went to her PCP and received an Xray that was negative, per pt. She notes that she was treated with Prednisone at that time with relief of pain and swelling. Pt said 1wk after d/c prednisone her pain began to worsen again. PCP visit note on 04/18 notes 3-4 days of sx - per office note. At that time a CBC, Uric Acid, and Xray were obtained. Xray demonstrated posttraumatic second MTP OA and was without acute fx/dislocation. No evidence of OM was seen at that time. Pt presented to the ED on 05/10 with worsening toe pain. ED note from 05/10 notes necrotic/cellulitic appearing rt second toe. Pt received an MRI that revealed diffuse marrow edema of the second toe and tip of the big toe distal phalanx w/ surrounding soft tissue edema, indicative of possible OM. Arterial US demonstrated calcified and noncalcified atherosclerotic plaque formation in the RLE, particularly in the proximal segment of the popliteal artery but was w/out evidence of occlusion. Pt was recommended admission at that time but stated that she was unable to miss work on 05/11. Pt was given rx Cipro, doxycycline, and Oxy and d/c home. Pt was encouraged to return to the ED for hospital admission prior to departure. Pt returned to ED on 05/12 and notes that her toe pain continues to worsen. She states that the black tissue on her toe has progressed from 05/11 in addition to progression of pain. Pt notes that it has become difficult for her to sleep d/t the pain that she has been experiencing. Pt otherwise denies sore throat, fever, chills, cough, congestion, SOB, palpitations, N/V/D, abd pain/discomfort, and changes in appetite. Pt will be admitted to the hospital for further evaluation and care. Allergies Allergy/AdvReac Type Severity Reaction Status Date / Time latex Allergy Intermediate REDNESS,RASH,LOCALIZED Verified 04/28/25 13:00 HOT FEELING metformin AdvReac Diarrhea Verified 04/28/25 13:00 Home Medications Medication Instructions Recorded Confirmed Type pen needle, diabetic 32 gauge x #100 ea 12/08/20 04/28/25 Rx 5/32" (BD Ultra-Fine Sari Pen Needle) epinephrine 0.3 mg/0.3 mL 0.3 mg (0.3 mL) IM ONCE PRN 03/08/22 05/12/25 Rx injection, auto-injector (EpiPen) anaphylaxis #1 ea nitroglycerin 0.4 mg sublingual 0.4 mg sublingual Q5M PRN chest 09/25/22 05/12/25 Rx tablet (Nitrostat) pain #25 tabs amoxicillin 875 mg-potassium 1 tab PO BID #14 tabs 05/14/25 Rx clavulanate 125 mg tablet blood sugar diagnostic #100 ea 05/14/25 Rx aspirin 81 mg tablet 81 mg PO DAILY #30 tabs 05/15/25 Rx atorvastatin 40 mg tablet 40 mg PO QAM #30 tabs 05/15/25 Rx citalopram 20 mg tablet 20 mg PO QAM #30 tabs 05/15/25 Rx insulin aspart U-100 100 unit/mL 5 - 10 unit (0.05 - 0.1 mL) subcut 05/15/25 Rx (3 mL) subcutaneous pen (Novolog AC #15 mL FlexPen U-100 Insulin aspart) insulin glargine 100 unit/mL (3 15 unit (0.15 mL) subcut QAM #3 mL 05/15/25 Rx mL) subcutaneous pen lisinopril 10 mg tablet 10 mg PO QAM #30 tabs 05/15/25 Rx Past Med/Surg History Problem List (Updated 05/15/25 @ 12:31 by Thomas Cole MD) Uncontrolled type 2 diabetes mellitus with hyperglycemia Type 2 diabetes mellitus with right diabetic foot ulcer Dry gangrene (Acute) Osteomyelitis (Acute) Infection of toe (Acute) Necrosis of toe (Acute) Type 2 diabetes mellitus with diabetic retinopathy Hypertension, essential, benign (Acute) Hyperlipidemia (Acute) Tobacco use GERD without esophagitis Anxiety (Acute) Obesity (Acute) S/P cardiac catheterization (~10/18/22) mild nonobstructive CAD Allergic rhinitis Recurrent cold sores (Acute) Medical History Cardiovascular stress test abnormal EKG, abnormal Chest pain Bee sting allergy Diverticular disease Depression Anxiety Hypertension Hyperlipidemia Surgical History History of shoulder surgery Hx of hand surgery History of ganglion cyst MULTIPLE CYST EXCISIONS History of bilateral tubal ligation History of section History of hysterectomy Family History Mother Diverticulitis COPD (chronic obstructive pulmonary disease) Thyroid disease Myocardial infarction Coronary heart disease Father Hypertension Hyperlipidemia Coronary heart disease Prostate cancer Peripheral vascular disease Social History Smoking Status: Current every day smoker Tobacco Type: Cigarettes Age Started Using Tobacco: 16; packs per day: 50; Cigarettes Per Day: 1/2 pack; Second Hand Exposure: No; Do You Dip or Chew Tobacco: No; Hx Alcohol Use: Yes Hx Substance Use: No Preferred Language: Kuwaiti Communication Ability: Effective Meter Engineer Required: No Beliefs That Will Affect Care: None Current Living Situation: Family Current Living Situation Comment: kids and grandson Feels Safe at Home: Yes Assistive Devices: None Review of Systems 2 Review of Systems: All systems reviewed & are unremarkable except as noted in Subjective Physical Exam 2 Physical Exam: General: Pt is a 55 y/o Obese F in NAD in bed. VS: reviewed, remarkable - BP 185/101 Skin: R second toe blackened down to DIP w/ erythema + edema progressing proximally to PIP (See image below); Erythema can also be seen on R great toe at tip (see images below); skin is otherwise Warm and dry; no lesions or ulcerations Respiratory: CTA bilat, no adventitious sounds noted. Chest expansion is full and symmetrical Cardio: RRR no murmurs Abdomen: Round, normoactive BS x4, nontender to palpation MSK: R great toe painful to touch, pt notes pain up to mid-dorsal aspect of foot; FROM of extremities, no deformities Extremities: no edema Neuro: A&Ox4, cooperative Results & Data Results & Data Vital Signs (Past 12 Hours) Vital Signs Temp Pulse Resp BP Pulse Ox 12/02/25 14:06 98 H 05/12/25 13:33 18 05/12/25 13:33 97.9 F 116 H 18 185/101 H 99 Laboratory Results Reviewed: CBC, CMP, Supervising Physician Co-Signing Physician Notes During face to face encounter, I obtained a history and physical examination, discussed plan of care with patient and answered any questions. I discussed plan of care with TUTU Lyons. I reviewed above note and agree with it except for the following: Patient will be admitted with osteomyelitis of his right second toe. Placed on empiric antibiotics, will consult podiatry PG Care Time/CCT Total # of Minutes Spent Total Time Spent with Patient: Total time spent is greater than 50% in coordination of care (as documented) at patient's floor/unit and/or counseling patient: Coding Level of Care Code 84693 INT INP/OBS CARE 3/75MIN Diagnoses Osteomyelitis M86.9 Infection of toe L08.9 Necrosis of toe I96 Type 2 diabetes mellitus with diabetic retinopathy E11.319 Hypertension, essential, benign I10 Mixed hyperlipidemia E78.2 Hyperlipidemia type: mixed hyperlipidemia Tobacco use Z72.0 GERD without esophagitis K21.9 Anxiety F41.9 (6) Hyperlipidemia Hyperlipidemia type: mixed hyperlipidemia Qualified Code(s): E78.2 - Mixed hyperlipidemia
[2025-05-12] MEDS: PLASMA-LYTE A 1,000 ML IV ONE (14:46)
[2025-05-12] MEDS: KETOROLAC TROMETHAMINE 15 MG/ML VIAL IV ONE (14:46)
[2025-05-12] MEDS: VANCOMYCIN HCL 2,750 MG in SODIUM CHLORIDE 0.9% 500 ML IV ONE (14:47)
[2025-05-12] MEDS ORDERED: MELATONIN 3 MG TAB PO PRN (15:25)
[2025-05-12] MEDS ORDERED: CARBOHYDRATES FOR HYPOGLYCEMIA PO PRN (15:25)
[2025-05-12] MEDS ORDERED: DEXTROSE 50% 50 ML SYRINGE IV PRN (15:25)
[2025-05-12] MEDS ORDERED: PHARMACY GLYCEMIC MGMT CONSULT PRN (15:25)
[2025-05-12] MEDS ORDERED: POLYETHYLENE (MIRALAX) 17 GM PACK PO PRN (15:25)
[2025-05-12] MEDS ORDERED: GLUCAGON FOR INJ 1 MG VIAL SQ PRN (15:25)
[2025-05-12] MEDS ORDERED: GLUCOSE 40% GEL 15 GM TUBE PO PRN (15:25)
[2025-05-12] MEDS ORDERED: ONDANSETRON INJ 2 MG/ML 2 ML VIAL IV PRN (15:25)
[2025-05-12] MEDS ORDERED: GLUCOSE 10 TAB/TUBE PO PRN (15:25)
[2025-05-12] MEDS: CEFEPIME 2000MG 2,000 MG/20 ML SYR IV SCH ×2 (18:02→19:26)
--- NOTE | 2025-05-12 18:44 | Pharmacy Report ---
Pharmacy PK ABX Note - Date of Service May 12, 2025 - Assessment and Plan Assessment 55 year old F receiving vanc, cefepime and metronidazole for treatment of R toe osteo, with plans for amputation 05/14. Day # 1 of antimicrobial therapy. Plan Vancomycin * Loading dose: 2750 mg IV x 1 * Maintenance dose: 1500 mg IV every 12 hours * Regimen is predicted to achieve target AUC/ZAY of 400-600 mg/L.hr * Random level ordered for: 05/14/25 with AM labs Pharmacy will continue to follow and will adjust dose/frequency as necessary. Thank you. Pharmacy has transitioned to AUC monitoring for vancomycin. AUC/ZAY is the preferred PK/PD target and is associated with decreased risk of nephrotoxicity compared to traditional trough targets.
[2025-05-12] MEDS: INSULIN ASPART PER UNIT CHARGE SC SCH (19:03)
[2025-05-12] MEDS: 4.5GM X1 IV STA (19:19)
[2025-05-12] MEDS: SODIUM CHLORIDE 0.9% 1,000 ML IV SCH (19:21)
[2025-05-12] MEDS: NICOTINE 14 MG/24 HR PATCH TD SCH (19:24)
[2025-05-12] MEDS: metroNIDAZOLE 500 MG/100 ML BAG IV SCH (19:26)
[2025-05-12] MEDS: LANTUS PER UNIT CHARGE SQ SCH (20:10)
--- NOTE | 2025-05-12 20:18 | Pharmacy Report ---
Pharmacy Glycemic Short Note 2 - Date of Service May 12, 2025 - Glycemic Short BSG Results (Last 24 hours): 05/12/25 05/12/25 14:01 20:01 Glucose 177 H POC Glucose 195 H OUTPATIENT ANTIDIABETIC REGIMEN: * Humalog mix kwikpen 50-50 30 units BID * A.3% 08/23/21 ASSESSMENT: * Patient admitted for right Toe osteo with possible amputation 05/14. * Confirmed with patient her she took 30 units of her pen this morning * Will use home regimen to guide a starting dose for split basal bolus regimen. * Patient is ordered a diet. PLAN FOR INPATIENT GLYCEMIC CONTROL: * Hold outpatient oral diabetes medications * Basal insulin * Lantus 15 units SQ BID * Bolus insulin * NovoLog per scale ACHS or Q6hrs while NPO * Goal Range: Low 110 mg/dL - High 150 mg/dL * Correction Factor: 20 mg/dL/unit * Nutritional / Prandial insulin per carb ratio of 1 unit per 7 grams CHO consumed
[2025-05-12] MEDS: VANCOMYCIN HCL 1,500 MG in SODIUM CHLORIDE 0.9% 500 ML IV SCH (22:24)
[2025-05-12] MEDS: PIPERACILLIN/TAZOBACTAM 4.5 GM/100 ML BAG IV SCH (22:25)
[2025-05-13] MEDS: HYDROmorphone INJ 0.5 MG/0.5 ML SYR IV STA ×2 (00:12→23:08)
[2025-05-13 06:58] LABS: Hematocrit (blood only) 40.6 % (37.0-47.0); Hemoglobin 14.0 g/dL (12.0-16.0); Immature Granulocytes # (auto) 0.04 K/uL (0.01-0.20); Immature Granulocytes % (auto) 0.6 %; Mean Corpuscular Hemoglobin 32.2 pg (25.0-34.0); Mean Corpuscular Volume 93.3 fL (80.0-100.0); Platelet Count 216 K/uL (130-400); RDW Standard Deviation 42.5 fL (36.4-46.3); Red Blood Count 4.35 M/uL (4.20-5.40); White Blood Count 6.48 K/ul (4.8-10.8)
[2025-05-13 07:20] LABS: Alanine Aminotransferase 19.0 U/L (7-52); Albumin Globulin Ratio 1.4 (0.9-2); Albumin Level 3.2 gm/dl (3.4-5.0); Alkaline Phosphatase 64.0 U/L (34-104); Anion Gap 6.0 (3-11); Bilirubin,Total 0.6 mg/dl (0.2-1.0); Blood Urea Nitrogen 7.0 mg/dl (6-23); Calcium 7.9 mg/dl (8.6-10.3); Carbon Dioxide 24.0 mmol/L (21-32); Chloride 107.0 mmol/L (98-107); Creatinine Clr Calc Pharmacy 108.5 ml/min; Globulin 2.3 gm/dl (2.5-4.0); Glucose 230.0 mg/dl (70-99(Fasting)); Potassium 3.7 mmol/L (3.5-5.1); Sodium 137.0 mmol/L (136-145); Total Protein 5.5 gm/dl (6.0-8.3)
[2025-05-13] MEDS: ATORVASTATIN 40 MG TAB PO SCH (08:23)
[2025-05-13] MEDS: CITALOPRAM 20 MG TAB PO SCH (08:23)
[2025-05-13] MEDS: FAMOTIDINE 10 MG TABLET PO SCH (08:23)
[2025-05-13] MEDS: LANTUS PER UNIT CHARGE SQ SCH ×2 (08:33→20:18)
[2025-05-13] MEDS: REMOVE NICODERM PATCH SCH (09:05)
[2025-05-13] MEDS: ACETAMINOPHEN 325 MG TAB PO PRN (12:57)
[2025-05-13 13:11] LABS: Hemoglobin A1C 11.9 % (4.5-5.6)
--- NOTE | 2025-05-13 13:37 | Pharmacy Report ---
Pharmacy Glycemic Short Note 2 - Date of Service May 13, 2025 - Glycemic Short BSG Results (Last 24 hours): 05/12/25 05/12/25 05/13/25 14:01 20:01 05:42 Glucose 177 H 230 H POC Glucose 195 H 05/13/25 05/13/25 08:12 12:12 Glucose POC Glucose 270 H 271 H OUTPATIENT ANTIDIABETIC REGIMEN: * Humalog mix kwikpen 50-50 30 units BID * A.3% 08/23/21 ASSESSMENT: 05/13 * Fasting BSG 270 mg/dL - will titrate up basal this AM and give Lantus 30 units x 1 now * Lunch BSG unchanged, will tighten CF/CR with dinner time check * A1c came back later this afternoon - A1c ~11.9%, anticipate insulin needs to be more than outpatient dosing * Will add on Lantus scale for HS based upon BSG value 05/12 * Patient admitted for right Toe osteo with possible amputation 05/14. * Confirmed with patient her she took 30 units of her pen this morning * Will use home regimen to guide a starting dose for split basal bolus regimen. * Patient is ordered a diet. PLAN FOR INPATIENT GLYCEMIC CONTROL: * Hold outpatient oral diabetes medications * Basal insulin * Lantus 30 units x 1 * Lantus 0-15 units HS * Bolus insulin * NovoLog per scale ACHS or Q6hrs while NPO * Goal Range: Low 110 mg/dL - High 150 mg/dL * Correction Factor: 15 mg/dL/unit * Nutritional / Prandial insulin per carb ratio of 1 unit per 5 grams CHO consumed
--- NOTE | 2025-05-13 14:07 | Podiatry Consultation ---
Date of Consultation May 13, 2025 Assessment & Plan (1) Dry gangrene: (2) Osteomyelitis: Laterality: right Osteomyelitis location: foot Osteomyelitis type: other acute Qualified Code(s): M86.171 - Other acute osteomyelitis, right ankle and foot (3) Necrosis of toe: (4) Type 2 diabetes mellitus with right diabetic foot ulcer: Plan Patient was examined and evaluated. We discussed at length the etiology and treatment of her right second toe ulceration. This level of necrosis, at this point, is nonviable. We did discuss she would benefit most from a primary amputation of the second toe. She is able to this and added onto the surgical schedule tomorrow afternoon. She will be nothing by mouth after midnight. This should heal uneventfully with a proximal interphalangeal joint disarticulation. She would benefit from vascular assessment to maximize her chance of this healing.We did discuss that her other alternative would be simply allowing this to auto amputate, though this would be a longer more painful process. Further, we discussed that continued tobacco abuse can certainly contribute to nonhealing, painful wounds and further necrosis. Patient understands and will consider these options, with the expectation she is having surgical intervention tomorrow. Thank you for the consult, We are always happy to help whenever possible. History of Present Illness Reason for Consultation: Right second toe necrosis Attending Physician: Ed Kay MD History of Present Illness Patient seen at bedside this afternoon. States that she has developed this right second toe discoloration and concern over the last few weeks. Prior to this, she denies any significant pedal concerns. She presented to the hospital for treatment recently but left AMA with concerns regarding her job. She was prescribed oral antibiotics and told to come back if it failed to improve, which occurred, so she presented again for admission. Now, she has more than what thought was just bruising. She denies any known cause including any specific injury or incident. She is interested in surgical intervention, if it would speed recovery. She still denies any systemic signs or symptoms of infection. Allergies Allergy/AdvReac Type Severity Reaction Status Date / Time latex Allergy Intermediate REDNESS,RASH,LOCALIZED Verified 04/28/25 13:00 HOT FEELING metformin AdvReac Diarrhea Verified 04/28/25 13:00 Home Medications Medication Instructions Recorded Confirmed Type blood sugar diagnostic (Blood #100 ea 05/25/20 04/28/25 Rx Glucose Test strips) pen needle, diabetic 32 gauge x #100 ea 12/08/20 04/28/25 Rx 5/32" (BD Ultra-Fine Sari Pen Needle) epinephrine 0.3 mg/0.3 mL 0.3 mg (0.3 mL) IM ONCE PRN 03/08/22 05/12/25 Rx injection, auto-injector (EpiPen) anaphylaxis #1 ea nitroglycerin 0.4 mg sublingual 0.4 mg sublingual Q5M PRN chest 09/25/22 05/12/25 Rx tablet (Nitrostat) pain #25 tabs insulin lispro protamine-lispro 30 unit subcut BID 05/12/25 05/12/25 History 100 unit/mL (50-50) subcutaneous pen (Humalog Mix 50-50 KwikPen) Patient History Medical History Cardiovascular stress test abnormal EKG, abnormal Chest pain Bee sting allergy Diverticular disease Depression Anxiety Hypertension Hyperlipidemia Surgical History History of shoulder surgery Hx of hand surgery History of ganglion cyst MULTIPLE CYST EXCISIONS History of bilateral tubal ligation History of section History of hysterectomy Family History Mother Diverticulitis COPD (chronic obstructive pulmonary disease) Thyroid disease Myocardial infarction Coronary heart disease Father Hypertension Hyperlipidemia Coronary heart disease Prostate cancer Peripheral vascular disease Social History Smoking Status: Current every day smoker Tobacco Type: Cigarettes Age Started Using Tobacco: 16; packs per day: 50; Cigarettes Per Day: 1/2 pack; Second Hand Exposure: No; Do You Dip or Chew Tobacco: No; Hx Alcohol Use: Yes Hx Substance Use: No Preferred Language: Azerbaijani Communication Ability: Effective Tobacco Dipper Required: No Beliefs That Will Affect Care: None Current Living Situation: Family Current Living Situation Comment: kids and grandson Other Information That Helps Us Care for You: No Feels Safe at Home: Yes Safety Concerns: Feels Safe At This Time Assistive Devices: Glasses Physical Exam Physical Exam: Right lower extremity focused exam: DP/PT pulses faintly palpable. CFT brisk to the digits, with the exception of the right second toe. This toe is necrotic to the distal phalanx, extending to the middle of the middle phalanx. There is local erythema and pain on palpation/ROM. There is malodor noted as well without allie purulence or ascending cellulitis. Protective sensation is intact. No abnormal reflexes noted. Muscle strength is equal and full bilateral. Constitutional: WD/WN, vitals as above + ill appearing and + morbidly obese; no acute distress Eyes: PERRL, conjunctivae normal, anicteric sclerae ENMT: external ear and nose normal, oropharynx normal Mouth: + poor dentition Neck: trachea midline, no thyromegaly normal visual inspection Respiratory: normal respiratory effort; no respiratory distress Cardiovascular: Rate/Rhythm: regular rate and regular rhythm Vessels: posterior tibial pulses present and dorsalis pedis pulses present Extremities: + pedal edema and + edema Chest (Breasts): Chest: normal inspection of chest Gastrointestinal (Abdomen): Inspection/Auscultation: abdomen normal to inspection Percussion/Palpation: + abdomen tender and abdomen soft Musculoskeletal: no cyanosis or clubbing, extremities motor strength 5/5 Head/Neck/Chest: normocephalic and head atraumatic Extremities: extremities normal to inspection Skin: + wound and + erythema Neurologic: awake; no focal motor deficits Psychiatric: A+Ox3, euthymic affect Results & Data Vital Signs (Past 12 Hours) Vital Signs Temp Pulse Pulse Resp BP Pulse Ox O2 Del Method 05/13/25 12:00 36.7 C 97 H 20 115/68 95 Room Air 05/13/25 08:30 Room Air 05/13/25 08:04 36.8 C 76 20 135/74 95 Room Air 05/13/25 07:23 81 05/13/25 02:00 36.9 C 76 14 155/80 H 96 Room Air
--- NOTE | 2025-05-13 18:05 | Hospitalist Progress Note ---
"Date of Service May 13, 2025 Assessment & Plan (1) Type 2 diabetes mellitus with right diabetic foot ulcer: (2) Dry gangrene: (3) Osteomyelitis: (4) Hypertension, essential, benign: (5) Tobacco use: Plan Pt is a 55 y/o F w/ a PMHx significant for T2DM w/ retinopathy, HTN, HLD, Current Tobacco Use, GERD, CAD s/p catheterization October 2022, Allergic Rhinitis, Anxiety, and recurrent Cold Sores who presents c/o worsening right second toe pain. Pt initially seen in ED 05/10 where MRI revealed Diffuse marrow edema of the distal phalanx of the second toe and tip of the big toe distal phalanx with surrounding soft tissue edema is seen, which could be osteomyelitis. During that same ED visit a Doppler US revealed plaque formation in RLE resulting in stenosis, particularly w/ the popliteal artery resulting in elevated BF velocity. Pt was d/c home on Cipro and Doxy as well as Oxycodone despite encouraged hospital say. Pt represented on 05/12 for hospital admission. #Osteomyelitis Rt second Toe - -Podiatry Consulted; Planning for toe amputation on r. Leonel -IV Vancomycin, managed by pharmacy -IV Zosyn 4.5 GM Q8H -Pain Management: Tylenol 650mg PO mild/mod pain, prn severe pain -PT/OT Consulted - Evaluated outpatient arterial Doppler study of right leg. Corresponded with Dr. Multani who did not feel there would be any improvement with any intervention and that her circulation is reasonable to proceed with podiatry as planned amputation #T2DM | Diabetic Retinopathy and peripheral artery disease- HbA1c presentation 11.9 - States she has had challenges getting home diabetic care due to insurance issues -Basal Insulin 20u BID; SSI (BSG 110-150, CF 15, CR10) -Pharmacy Glycemic Consult #Current Tobacco Use - 1/2 PPD -Nicotine Patch Daily strong cessation counseling given due to concern for wound healing #GERD - no acute concerns -Famotidine QAM #HTN | HLD - -Continue Lisinopril 10mg, Atorvastatin 40mg #Anxiety | Difficulty Sleeping - no acute concerns -Continue Citalopram -Melatonin 3mg HS prn VTE Proph: SCDs, Chemoprophylaxis deferred d/t upcoming procedure Pt notes that she wasn't regularly taking home meds d/t loss of insurance and would like to have medications filled upon discharge. F/U appt scheduled for Jun, pt Admission and Anticipated Discharge Date Admission Date: May 12, 2025 Subjective Patient reasonably good spirits. Understands she is likely to have amputation of her second toe. Does state that her diabetes is in generally good condition but has not had good foot care maintenance as she does not like people to touch her feet. Physical Exam Physical Exam: Toe examined shows a second toe well well-demarcated dry gangrene with some mild erythema that progresses towards the middle interphalangeal joint. There is some mild redness on the adjacent great toe but this does not appear to be actively cellulitic or gangrenous. There are poor pulses in her right foot better pulses in her left foot. This was correlated with a Doppler study done as an outpatient and cross-referenced with a camelia consultation with vascular surgery who feels there is no amenable lesions that would improve after intervention Results & Data Results & Data Vital Signs (Past 12 Hours) Vital Signs Temp Pulse Pulse Resp BP Pulse Ox O2 Del Method 05/13/25 15:28 98.1 F 71 20 120/71 95 Room Air 05/13/25 12:54 86 05/13/25 12:00 98.1 F 97 H 20 115/68 95 Room Air 05/13/25 08:30 Room Air 05/13/25 08:04 98.2 F 76 20 135/74 95 Room Air 05/13/25 07:23 81 Laboratory Results Reviewed CBC no leukocytosis or anemia Reviewed chemistry with intact renal function, poor glucose control with an A1c of 11.9. Patient admits to running out of money and insurance so not able to afford her medications PG Care Time/CCT Total # of Minutes Spent Total Time Spent with Patient: Total time spent is greater than 50% in coordination of care (as documented) at patient's floor/unit and/or counseling patient: Coding Level of Care Code 28816 SUB INP/OBS CARE 3/50MIN Diagnoses Type 2 diabetes mellitus with right diabetic foot ulcer E11.621; L97.519 Dry gangrene I96 Other acute osteomyelitis of right foot M86.171 Laterality: right Osteomyelitis location: foot Osteomyelitis type: other acute Hypertension, essential, benign I10 Tobacco use Z72.0 (3) Osteomyelitis Laterality: right Osteomyelitis location: foot Osteomyelitis type: other acute Qualified Code(s): M86.171 - Other acute osteomyelitis, right ankle and foot"
[2025-05-14 06:03] LABS: Creatinine Clr Calc Pharmacy 81.9 ml/min
[2025-05-14] MEDS: LANTUS PER UNIT CHARGE SQ SCH (09:27)
--- NOTE | 2025-05-14 12:36 | Pharmacy Report ---
Pharmacy PK ABX Note - Date of Service May 14, 2025 - Assessment and Plan Assessment 55 year old F receiving vancomycin and piperacillin/tazobactam for treatment of R toe osteomyelitis with plans for amputation today (05/14). Blood cultures show no growth at 48 hours. History of poorly controlled T2DM. Day # 3 of antimicrobial therapy. Plan Vancomycin * Current regimen: 1500 mg IV every 12 hours * Random level obtained 05/14/25 resulted as 16.8 mcg/mL. This is predicted to achieve target AUC/ZAY of 400-600 mg/L.hr * Predicted AUC at steady state: 535 mg/L.hr * Continue 1500 mg IV every 12 hours * Will repeat level in the next 48-72 hours if therapy is continued and/or change in patient clinical status Pharmacy will continue to follow and will adjust dose/frequency as necessary. Thank you. Pharmacy has transitioned to AUC monitoring for vancomycin. AUC/ZAY is the preferred PK/PD target and is associated with decreased risk of nephrotoxicity compared to traditional trough targets.
[2025-05-14] MEDS ORDERED: LIDOCAINE 2% 2 ML VIAL/AMP(20MG/ML) INFIL ONE (13:45)
[2025-05-14] MEDS ORDERED: ONDANSETRON INJ 2 MG/ML 2 ML VIAL ONE (13:45)
[2025-05-14] MEDS ORDERED: DEXAMETHASONE SOD INJ 4 MG/ML VIAL ONE (13:45)
[2025-05-14] MEDS ORDERED: MIDAZOLAM HCL 1 MG/ML 2ML VIAL ONE (13:45)
[2025-05-14] MEDS ORDERED: PROPOFOL IV EMULSION 10 MG/ML 20 ML VIAL IV ONE (13:45)
[2025-05-14] MEDS ORDERED: GLYCOPYRROLATE 0.2 MG/ML VIAL ONE (13:48)
--- NOTE | 2025-05-14 14:08 | History & Physical Bridge Note ---
Date of Service May 14, 2025 History & Physical Bridge Note I have examined the patient, reviewed the History & Physical and in the interval since the performance of the History & Physical I have noted the following changes of clinical significance: no changes noted. Preoperative instructions, postoperative instructions, relative risks, and outcomes all discussed. Consent obtained for right second toe amputation. All questions answered.
--- NOTE | 2025-05-14 14:24 | Anesthesiology Consultation ---
Date of Service May 14, 2025 Assessment & Plan Chart Review Chart Review: Acceptable Risk for Surgery and Patient NOT seen in Pre Admission Testing Consults Requested none ASA ASA3 Proposed Anesthesia Anesthesia Type: MAC History Surgery Operation Date: 05/14/25 14:15 Proposed Procedures p Right 2nd Toe Amputation - Preston Castaneda DPM Height/Weight Height: 5 ft 5 in Weight: 119.3 kg Allergies Allergy/AdvReac Type Severity Reaction Status Date / Time latex Allergy Intermediate REDNESS,RASH,LOCALIZED Verified 04/28/25 13:00 HOT FEELING metformin AdvReac Diarrhea Verified 04/28/25 13:00 Medications Home Medications Medication Instructions Recorded Confirmed Last Taken blood sugar diagnostic (Blood #100 ea 05/25/20 04/28/25 Unknown Glucose Test strips) pen needle, diabetic 32 gauge x #100 ea 12/08/20 04/28/25 Unknown 32" (BD Ultra-Fine Sari Pen Needle) epinephrine 0.3 mg/0.3 mL 0.3 mg (0.3 mL) IM ONCE PRN 03/08/22 05/12/25 Unknown injection, auto-injector (EpiPen) anaphylaxis #1 ea nitroglycerin 0.4 mg sublingual 0.4 mg sublingual Q5M PRN chest 09/25/22 05/12/25 Unknown tablet (Nitrostat) pain #25 tabs insulin lispro protamine-lispro 30 unit subcut BID 05/12/25 05/12/25 Unknown 100 unit/mL (50-50) subcutaneous pen (Humalog Mix 50-50 KwikPen) Active Medications Generic Name Dose Route Start Last Admin Trade Name Freq PRN Reason Stop Dose Admin Acetaminophen 650 mg 05/12/25 15:25 05/13/25 12:57 Acetaminophen 325 Mg Tab PO 06/11/25 15:24 650 mg Q4H PRN Administration Pain or Fever Atorvastatin Calcium 40 mg 05/13/25 09:00 05/14/25 13:30 Atorvastatin 40 Mg Tab PO 06/12/25 08:59 Not Given QAM LIEN Citalopram Hydrobromide 20 mg 05/13/25 09:00 05/14/25 13:30 Citalopram 20 Mg Tab PO 06/12/25 08:59 Not Given QAM LIEN Famotidine 10 mg 05/13/25 09:00 05/14/25 13:30 Famotidine 10 Mg Tablet PO 06/12/25 08:59 Not Given QAM [facility] Sodium Chloride 1,000 mls @ 80 mls/hr 05/12/25 15:30 05/14/25 08:30 Nss IV 05/15/25 15:29 80 mls/hr .[id number] LIEN Administration Vancomycin HCl 1,500 mg/ 530 mls @ 200 mls/hr 05/12/25 23:00 05/14/25 12:25 Sodium Chloride IV 06/23/25 22:59 200 mls/hr Q12H LIEN Administration Piperacillin Sod/Tazobactam Sod 4.5 gm in 100 mls @ 25 mls/hr 05/12/25 23:30 05/14/25 11:39 Zosyn IV 05/19/25 23:29 Infused Q8H [facility] Infusion Protocol Insulin Aspart 0 units 05/12/25 16:30 05/14/25 13:32 Insulin Aspart Per Unit Charge SC 06/11/25 16:29 Not Given ACHS [facility] Insulin Glargine 0 units 05/13/25 21:00 05/13/25 20:18 Lantus Per Unit Charge SQ 06/12/25 20:59 10 units HS [facility] Administration Protocol Insulin Glargine 20 units 05/14/25 09:00 05/14/25 09:27 Lantus Per Unit Charge SQ 06/12/25 08:59 20 units DAILY LIEN Administration Lisinopril 10 mg 05/12/25 18:00 05/14/25 13:31 Lisinopril 10 Mg Tab PO 06/11/25 17:59 Not Given QAM [facility] Miscellaneous 1 each 05/13/25 08:59 05/14/25 09:20 Remove Nicoderm Patch N/A 06/12/25 08:58 1 each DAILY@[id number] [facility] Administration Nicotine 1 patch 05/12/25 18:00 05/14/25 13:31 Nicotine 14 Mg/24 Hr Patch TD 06/11/25 17:59 Not Given QAM [facility] Oxycodone HCl 5 mg 05/12/25 15:35 05/13/25 21:31 Oxycodone Hcl Ir 5 Mg Tab (Immediate Release) PO 05/26/25 15:34 5 mg Q4H PRN Administration Pain NPO Date Last Intake of Fluids: 05/13/25 Time Last Intake of Fluids: 20:00 Date Last Intake of Solids: 05/13/25 Time Last Intake of Solids: 17:30 Past Medical History Medical History Cardiovascular stress test abnormal EKG, abnormal Chest pain Bee sting allergy Diverticular disease Depression Anxiety Hypertension Hyperlipidemia Exercise / Class Metabolic Activity III < 4 Walking/Shop/Light housework Past Family History Family History Mother Diverticulitis COPD (chronic obstructive pulmonary disease) Thyroid disease Myocardial infarction Coronary heart disease Father Hypertension Hyperlipidemia Coronary heart disease Prostate cancer Peripheral vascular disease Past Surgical History Surgical History History of shoulder surgery Hx of hand surgery History of ganglion cyst MULTIPLE CYST EXCISIONS History of bilateral tubal ligation History of section History of hysterectomy Past Anesthesia History No Hx of Anesthesia Complications and No Family Hx of Anesthesia Complications History of PONV No Hx of PONV and No Hx of Motion Sickness Social History Smoking Status: Current every day smoker tobacco type: cigarettes Smoking cigarettes per day: 1/2 pack Do You Dip or Chew Tobacco: No Hx Alcohol Use: Yes alcohol intake frequency: holidays/special occasions only Hx Substance Use: No substance use type: does not use Review of Systems Musculoskeletal: as per Subjective / HPI osteomyelitis Physical Exam Vital Signs Last Vital Signs Temp 37 C 05/14/25 14:00 Pulse 83 05/14/25 14:00 Resp 20 05/14/25 14:00 BP 193/96 H 05/14/25 14:00 Pulse Ox 97 05/14/25 14:00 O2 Del Method Room Air 05/14/25 14:00 Constitutional + morbidly obese; no acute distress ENMT Mouth: no TMJ abnormality Thyromental Distance: > or= 3.5 Finger Breadths Mallampati Class: III Neck normal visual inspection Respiratory normal respiratory effort; no respiratory distress Cardiovascular Rate/Rhythm: regular rate and regular rhythm Neurologic moves all extremities Motor/Sensory: + sensory deficit (mildly decreased sensation) Psychiatric Orientation: alert and oriented x 3 Testing Laboratory Results 05/13/25 05:42 05/14/25 05:25 Hemoglobin A1c 11.9 % (4.5-5.6) H 05/13/25 05:42 05/14/25 05/14/25 11:47 07:52 POC Glucose 147 H 166 H
[2025-05-14] MEDS: BUPIVACAINE 0.5 % 5 MG/1 ML MPF 30ML VIAL ONE (14:36)
--- NOTE | 2025-05-14 14:55 | Post Operative Brief Note ---
Immediate Post Op Note Date of Surgery May 14, 2025 Pre & Post Diagnosis Operation Date: 05/14/25 14:15 Pre-Op Diagnosis: OSTEOMYELITIS Post-Op Diagnosis: OSTEOMYELITIS I identified the patient and participated in the time-out.: Yes Procedure Operation Date: 05/14/25 14:15 Actual Procedures p Right 2nd Toe Amputation(Right) - Preston Castaneda DPM Surgeon Preston Castaneda DPM Poker Supervisor None Estimated Blood Loss 2 Findings Consistent with Post-Op Diagnosis Right proximal margin from proximal phalanx sent for pathology. Needed removed based on level of soft tissue insult for primary closure Specimens Right second toe gross pathology Right second toe proximal phalanx proximal margin Anesthesia Type MAC Complications none Disposition Accompanied Patient To Recovery: Yes Disposition: Recovery Room
[2025-05-14] MEDS ORDERED: ATROPINE SULFATE 0.1 MG/ML 10ML SYR IV PRN (15:06)
--- NOTE | 2025-05-14 15:07 | Anesthesiology Progress Note ---
Date of Service May 14, 2025 Anesthesia Post Procedure Vital Signs Vital Signs: Temp Pulse Pulse Resp BP BP Pulse Ox 05/14/25 14:00 37 C 83 20 193/96 H 97 05/14/25 11:00 36.6 C 77 18 144/80 H 94 05/14/25 08:36 72 05/14/25 08:01 36.9 C 80 18 143/89 H 95 05/14/25 03:00 36.6 C 73 16 153/72 H 96 05/13/25 23:16 36.5 C 88 16 151/91 H 92 05/13/25 22:08 77 05/13/25 19:02 36.6 C 82 16 109/63 96 05/13/25 15:28 36.7 C 71 20 120/71 95 O2 Del Method 05/14/25 14:00 Room Air 05/14/25 11:00 Room Air 05/14/25 08:36 05/14/25 08:01 Room Air 05/14/25 03:00 Room Air 05/13/25 23:16 Room Air 05/13/25 22:08 05/13/25 19:02 Room Air 05/13/25 15:28 Room Air Pain Intensity 2nd Digit Toe: Pain Intensity: 5 Transfer of Care Handoff Completed per policy Notes Mental Status: alert / awake / arousable and participated in evaluation Patient Amnestic to Procedure: Yes Nausea / Vomiting: adequately controlled Pain: adequately controlled Airway Patency, RR, SpO2: stable & adequate BP & HR: stable & adequate Hydration State: stable & adequate Anesthetic Complications: no major complications apparent and Pt Satisfied with anesthetic care
--- NOTE | 2025-05-14 17:39 | Hospitalist Progress Note ---
"Date of Service May 14, 2025 Assessment & Plan (1) Type 2 diabetes mellitus with right diabetic foot ulcer: (2) Dry gangrene: (3) Osteomyelitis: (4) Hypertension, essential, benign: (5) Tobacco use: Plan Pt is a 55 y/o F w/ a PMHx significant for T2DM w/ retinopathy, HTN, HLD, Current Tobacco Use, GERD, CAD s/p catheterization October 2022, Allergic Rhinitis, Anxiety, and recurrent Cold Sores who presents c/o worsening right second toe pain. Pt initially seen in ED 05/10 where MRI revealed Diffuse marrow edema of the distal phalanx of the second toe and tip of the big toe distal phalanx with surrounding soft tissue edema is seen, which could be osteomyelitis. During that same ED visit a Doppler US revealed plaque formation in RLE resulting in stenosis, particularly w/ the popliteal artery resulting in elevated BF velocity. Pt was d/c home on Cipro and Doxy pt failed attempts at oral antibiotic treatment, toe progressed to gangrene and amputation performed, will need better glucose control and smoking cessation #Osteomyelitis Rt second Toe - -Podiatry Consulted; right second toe amputation on r. Leonel -IV Vancomycin, managed by pharmacy -IV Zosyn 4.5 GM Q8H clean margins in [place] podiatry ok to transition to po at home -Pain Management: Tylenol 650mg PO mild/mod pain, prn severe pain -PT/OT Consulted , post op shoe fitted - Evaluated outpatient arterial Doppler study of right leg. Corresponded with Dr. Multani who did not feel there would be any improvement with any intervention and that her circulation is reasonable to proceed with podiatry as planned amputation #T2DM | Diabetic Retinopathy and peripheral artery disease- HbA1c presentation 11.9 - States she has had challenges getting home diabetic care due to insurance issues -Basal Insulin 20u BID; SSI (BSG 110-150, CF 15, CR10) -Pharmacy Glycemic Consult, paige dooley community educator attempting to get dexcom and to revamp home insulin program prior to discharge #Current Tobacco Use - 1/2 PPD -Nicotine Patch Daily strong cessation counseling given due to concern for wound healing #GERD - no acute concerns -Famotidine QAM #HTN | HLD - -Continue Lisinopril 10mg, Atorvastatin 40mg #Anxiety | Difficulty Sleeping - no acute concerns -Continue Citalopram -Melatonin 3mg HS prn VTE Proph: SCDs, Chemoprophylaxis deferred d/t upcoming procedure consider follow up with endocrinology in [place] Admission and Anticipated Discharge Date Admission Date: May 12, 2025 Subjective Patient reasonably good spirits. Patient initially wanted to go home on 05/14. We do not have her Dexcom her home insulin regimen set up. She is agreeable to stay to talk to Paige or diabetic nurse educator on 05 15 to get her prediabetic care set up to improve wound healing spent some time with smoking cessation counseling. I am pessimistic that this is going to be something the patient embraces. Continue to reinforce the benefit in wound healing Physical Exam Physical Exam: Patient wake alert appropriate. Wound is dressed with surgeons instructions not to undress until she goes to the office. Card exam is regular lungs are clear Results & Data Results & Data Vital Signs (Past 12 Hours) Vital Signs Temp Pulse Pulse Pulse Resp BP Pulse Ox 05/14/25 16:33 98.2 F 74 20 116/76 95 05/14/25 15:42 98.2 F 75 18 102/60 94 05/14/25 15:26 93 H 05/14/25 15:26 73 15 93/61 L 93 05/14/25 15:15 97.9 F 73 19 107/56 L 95 05/14/25 15:05 74 15 102/56 L 95 05/14/25 14:58 96.8 F L 78 15 119/92 98 05/14/25 14:00 98.6 F 83 20 193/96 H 97 05/14/25 11:00 97.9 F 77 18 144/80 H 94 05/14/25 08:36 72 05/14/25 08:01 98.4 F 80 18 143/89 H 95 O2 Del Method O2 Flow Rate 05/14/25 16:33 Room Air 05/14/25 15:42 Room Air 05/14/25 15:26 05/14/25 15:26 Room Air 05/14/25 15:15 Room Air 05/14/25 15:05 Room Air 05/14/25 14:58 Oxymask 7 05/14/25 14:00 Room Air 05/14/25 11:00 Room Air 05/14/25 08:36 05/14/25 08:01 Room Air PG Care Time/CCT Total # of Minutes Spent Total Time Spent with Patient: Total time spent is greater than 50% in coordination of care (as documented) at patient's floor/unit and/or counseling patient: Coding Level of Care Code 32544 SUB INP/OBS CARE 3/50MIN Diagnoses Type 2 diabetes mellitus with right diabetic foot ulcer E11.621; L97.519 Dry gangrene I96 Other acute osteomyelitis of right foot M86.171 Laterality: right Osteomyelitis location: foot Osteomyelitis type: other acute Hypertension, essential, benign I10 Tobacco use Z72.0 (3) Osteomyelitis Laterality: right Osteomyelitis location: foot Osteomyelitis type: other acute Qualified Code(s): M86.171 - Other acute osteomyelitis, right ankle and foot"
[2025-05-14] MEDS: HYDROmorphone INJ 0.5 MG/0.5 ML SYR IV STA (23:23)
[2025-05-15 07:34] LABS: Creatinine Clr Calc Pharmacy 92.0 ml/min
[2025-05-15 07:49] VITALS: RESP 16; TEMP 98.1; O2SAT 92
[2025-05-15] MEDS: LANTUS PER UNIT CHARGE SQ SCH (09:14)
--- NOTE | 2025-05-15 12:23 | Discharge Summary ---
Discharge Summary Date of Service May 15, 2025 Principal Dx & Hospital Course #1 = Principal Diagnosis (1) Type 2 diabetes mellitus with right diabetic foot ulcer: (2) Dry gangrene: (3) Osteomyelitis: (4) Hypertension, essential, benign: (5) Tobacco use: (6) Uncontrolled type 2 diabetes mellitus with hyperglycemia: Plan Pt is a 55 y/o F w/ a PMHx significant for T2DM w/ retinopathy, HTN, HLD, Current Tobacco Use, GERD, CAD s/p catheterization October 2022, Allergic Rhinitis, Anxiety, and recurrent Cold Sores who presents c/o worsening right second toe pain. Pt initially seen in ED 05/10 where MRI revealed Diffuse marrow edema of the distal phalanx of the second toe and tip of the big toe distal phalanx with surrounding soft tissue edema is seen, which could be osteomyelitis. During that same ED visit a Doppler US revealed plaque formation in RLE resulting in stenosis, particularly w/ the popliteal artery resulting in elevated BF velocity. Pt was d/c home on Cipro and Doxy pt failed attempts at oral antibiotic treatment, toe progressed to gangrene and amputation performed. Clean margins and possibly due to ischemic rather than infectious however was covered with 1 week of antibiotics. Case was reviewed with vascular surgery during admission, surgical intervention was not recommended. To do as outpatient: 1. Follow-up with podiatry 2. Complete 1 week of Augmentin therapy 3. Continue basal bolus insulin regimen. Lantus 15 units every morning, aspart ranging 5-10 units based on Premeal glucose. Continue to adjust to needs at home with close follow-up. Referral to endocrinology placed 4. Continued recommendation encouragement for tobacco cessation 5. Continue aspirin 81 mg daily for peripheral vascular disease, atorvastatin also continue #Osteomyelitis Rt second Toe - -Podiatry Consulted; right second toe amputation on 124Dr. Leonel -IV Vancomycin, managed by pharmacy -IV Zosyn 4.5 GM Q8H clean margins in [place] podiatry ok to transition to po at home Postop shoe fitted - Evaluated outpatient arterial Doppler study of right leg. Corresponded with Dr. Multani who did not feel there would be any improvement with any intervention and that her circulation is reasonable to proceed with podiatry as planned amputation Given her underlying peripheral vessel disease was continued on aspirin 81 mg daily and statin therapy Continued on Augmentin for 1 week, clean margins and no history of resistant infection #T2DM | Diabetic Retinopathy and peripheral artery disease- HbA1c presentation 11.9 - States she has had challenges getting home diabetic care due to insurance issues however has recently had this resolved She reports that she has had both poor blood sugar control around meals and frequently has lows between meals requiring her to take sugar. Likely in part due to her use of 50-50 insulin Did discuss various options with her at time of discharge. Given her A1c greater than 10, history of both hyper and hypoglycemia with blinded insulin feel she will likely benefit from a basal bolus regimen on discharge. She feels comfortable with this and would like to try this with follow-up to endocrinology for further measurements. She is being set up for Dexcom as an outpatient She was discharged on Lantus 15 units every morning, aspart with meals ranging 5-10 units based on her Premeal glucose. Follow-up referral to endocrinology placed, follow-up with PCP as well #Current Tobacco Use - 1/2 PPD -Nicotine Patch Daily strong cessation counseling given due to concern for wound healing #GERD - no acute concerns -Famotidine QAM #HTN | HLD - -Continue Lisinopril 10mg, Atorvastatin 40mg #Anxiety | Difficulty Sleeping - no acute concerns -Continue Citalopram -Melatonin 3mg HS prn Admission HPI Per Admitting Provider Pt is a 55 y/o F w/ a PMHx significant for T2DM w/ retinopathy, HTN, Current Tobacco Use, GERD, CAD s/p catheterization October 2022, Allergic Rhinitis, Anxiety, and recurrent Cold Sores who presents c/o worsening right second toe pain. 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 Pt states that at that time she went to her PCP and received an Xray that was negative, per pt. She notes that she was treated with Prednisone at that time with relief of pain and swelling. Pt said 1wk after d/c prednisone her pain began to worsen again. PCP visit note on 04/18 notes 3-4 days of sx - per office note. At that time a CBC, Uric Acid, and Xray were obtained. Xray demonstrated posttraumatic second MTP OA and was without acute fx/dislocation. No evidence of OM was seen at that time. Pt presented to the ED on 05/10 with worsening toe pain. ED note from 05/10 notes necrotic/cellulitic appearing rt second toe. Pt received an MRI that revealed diffuse marrow edema of the second toe and tip of the big toe distal phalanx w/ surrounding soft tissue edema, indicative of possible OM. Arterial US demonstrated calcified and noncalcified atherosclerotic plaque formation in the RLE, particularly in the proximal segment of the popliteal artery but was w/out evidence of occlusion. Pt was recommended admission at that time but stated that she was unable to miss work on 05/11. Pt was given rx Cipro, doxycycline, and Oxy and d/c home. Pt was encouraged to return to the ED for hospital admission prior to departure. Pt returned to ED on 05/12 and notes that her toe pain continues to worsen. She states that the black tissue on her toe has progressed from 05/11 in addition to progression of pain. Pt notes that it has become difficult for her to sleep d/t the pain that she has been experiencing. Pt otherwise denies sore throat, fever, chills, cough, congestion, SOB, palpitations, N/V/D, abd pain/discomfort, and changes in appetite. Pt will be admitted to the hospital for further evaluation and care. Discharge Exam General: A&Ox3. NAD. Cooperative. HEENT: Atraumatic, normocephalic. Vision and hearing grossly intact Pulm: CTAB A&P. -wheezes, -rales, -rhonchi. Symmetrical chest rise. No increase in work of breathing. No respiratory distress. Cardiac: RRR, -mrg. Radial pulses intact and symmetrical. Abdominal: Nontender, nondistended, soft. BS present. Extremities: Right surgical dressing and postop shoe in place. Dressing C/D/I Discharge Plan Discharge Items Patient Disposition: Home - Self-Care Reason For Visit: OSTEOMYELITIS Discharge Diagnosis: right second toe gangrene diabetic foot infection amputation of right 2nd toe Condition on Discharge: Serious Activity: Per Instructions section Activity Comment: post op instructions from Dr Castaneda Non-emergency contact: Primary Care Provider and Surgeon Call non-emergency contact if: your symptoms worsen Follow-up/Referrals: Emory Don PA-C [Physician Imaging Technologist] - Preston Castaneda DPM [Physician] - Ivory Tyler MD [Primary Care Provider] - 05/22/25 11:00 am Diet: Carb Consistent or DM2 Addtl Attending Provider Instructions: follow up with Dr Castaneda as instructed smoking can reduce wound healing and lead to infection and further infection and surgery, strongly advocate for no smoking or second hand smoke exposure You were seen in the hospital for concerns of an infected/ischemic toe. You underwent resection of the distal and part of the proximal toe. Your A1c, a measure of diabetes, showed uncontrolled diabetes which can cause progressive vascular disease and other complications including eye and kidney damage. Your toe was improved following surgery. You have been continued on an antibiotic, Augmentin, for 5 days. Please take Augmentin 875-125 mg by mouth twice daily with food for 7 days. Due to poorly controlled diabetes it was recommended you have a change in your blood sugar management regimen. You are being set up as an outpatient with a continuous glucose monitor. Various options including continuing mixed insulin versus a basal bolus regimen were discussed with you prior to discharge. You preferred to switch to a basal bolus regimen with follow to endocrinology. Please check your blood sugar every morning, and prior to meals, and as needed i f you have symptoms of low blood sugar. When you return home please take insulin glargine (long-acting insulin) 15 units once daily every morning. Please take insulin aspart (short acting insulin) with meals. Please take 7 of short acting insulin with meals units please check your blood sugar prior to meals. For every 30 mg/dL above 150 You may take 1 additional unit (if your blood sugar is before meals you may take 8 units, if it is above 200 you may take 9 units, etc.) up to a maximum of 10 units with meals. If your blood sugar is below 100 decrease this to 4-5 units instead.. Follow-up with endocrinology is being scheduled for you to follow adjustments with your medications. If you have persistently low, or very high blood sugars please call your primary care physician for recommendations. It may take some time to find a correct requirements for you based on your regular home diet. You have been started on aspirin 81 mg daily. You have been started on atorvastatin 40 mg daily to help prevent progression of peripheral vascular disease. You should have a check of your liver enzymes (LFTs) within 2 weeks performed by your primary care provider. If you develop any new or worsening symptoms including fever, chills, sweats, chest pain, chest pressure, difficulty breathing, uncontrolled nausea/vomiting, rash, wheezing, passing out or nearly passing out, bleeding, black/bloody bowel movements, or other new or concerning symptoms please call your primary care physician, or call 911 for re-evaluation in the emergency department if you are very concerned. Pending Studies at Discharge: Yes Studies:: intraoperative wound cultures Stand-Alone Forms: [facility], Work/School Release, Smoking Ce ssation Medications and DC Order Prescriptions: New amoxicillin-pot clavulanate 875-125 mg tablet 1 tab PO BID Qty: 14 0RF atorvastatin 40 mg Tablet 40 mg PO QAM Qty: 30 0RF citalopram 20 mg Tablet 20 mg PO QAM Qty: 30 0RF lisinopril 10 mg Tablet 10 mg PO QAM Qty: 30 0RF insulin glargine 100 unit/mL (3 mL) insulin pen 15 unit subcut QAM Qty: 3 0RF insulin aspart U-100 [Novolog FlexPen U-100 Insulin] 100 unit/mL (3 mL) insulin pen 5 - 10 unit subcut AC Qty: 15 0RF Rx Instructions: take 7 of short acting insulin with meals units please check your blood sugar prior to meals. For every 30 mg/dL above 150mg/dL you may take 1 additional unit (if your blood sugar is before meals he may take 8 units, if it is above 200 you may take 9 units, etc.) up to a maximum of 10 units with meals. If your blood sugar is below 100 decrease this to 4-5 units with your meal instead. aspirin 81 mg tablet 81 mg PO DAILY Qty: 30 0RF Continued (DME) pen needle, diabetic [BD Ultra-Fine Sari Pen Needle] 32 gauge x 5/32" ne edle See Rx Instructions .ROUTE .MEDSUPPLY Qty: 100 3RF Rx Instructions: As directed-use twice daily epinephrine [EpiPen] 0.3 mg/0.3 mL auto-injector 0.3 mg IM ONCE PRN (Reason: anaphylaxis) Qty: 1 2RF Rx Instructions: for 2 doses nitroglycerin [Nitrostat] 0.4 mg tablet, sublingual 0.4 mg sublingual Q5M PRN (Reason: chest pain) Qty: 25 0RF Rx Instructions: do not exceed 3 doses per episode (DME) blood sugar diagnostic Strip See Rx Instructions .ROUTE .MEDSUPPLY Qty: 100 1RF Rx Instructions: Check blood sugar in the AM prior to breakfast Discontinued Humalog Mix 50-50 KwikPen 100 unit/mL (50-50) insulin pen 30 unit SQ BID Discharge Orders: Discharge Order (Routine); Ordered 05/15/25 Ordered By: Thomas Cole Admission Data Admit Date/Time: 05/12/25 15:26 Attending Provider: Thomas Cole Admit Provider: Stu Thomson Primary Care Provider: Ivory Tyler Other Providers: Stu Thomson; Preston Castaneda Other Interventions: Discharge Summary Assessment (RN) Last Done: 05/15/25 14:31 Hospital Stay Data Consultations 05/12/25 14:35 ED Decision to Admit Stat 05/13/25 07:47 Consult Podiatry Routine Procedures Performed Operation Date: 05/14/25 14:15 Actual Procedures p Right 2nd Toe Amputation(Right) - Preston Castaneda DPM Pending Results Patient Have Any Pending Studies at Discharge: Yes Discharge Instructions Given to Patient (Per Discharging Provider) follow up with Dr Castaneda as instructed smoking can reduce wound healing and lead to infection and further infection and surgery, strongly advocate for no smoking or second hand smoke exposure You were seen in the hospital for concerns of an infected/ischemic toe. You underwent resection of the distal and part of the proximal toe. Your A1c, a measure of diabetes, showed uncontrolled diabetes which can cause progressive vascular disease and other complications including eye and kidney damage. Your toe was improved following surgery. You have been continued on an antibiotic, Augmentin, for 5 days. Please take Augmentin 875-125 mg by mouth twice daily with food for 7 days. Due to poorly controlled diabetes it was recommended you have a change in your blood sugar management regimen. You are being set up as an outpatient with a continuous glucose monitor. Various options including continuing mixed insulin versus a basal bolus regimen were discussed with you prior to discharge. You preferred to switch to a basal bolus regimen with follow to endocrinology. Please check your blood sugar every morning, and prior to meals, and as needed if you have symptoms of low blood sugar. When you return home please take insulin glargine (long-acting insulin) 15 units once daily every morning. Please take insulin aspart (short acting insulin) with meals. Please take 7 of short acting insulin with meals units please check your blood sugar prior to christos ls. For every 30 mg/dL above 150 You may take 1 additional unit (if your blood sugar is before meals you may take 8 units, if it is above 200 you may take 9 units, etc.) up to a maximum of 10 units with meals. If your blood sugar is below 100 decrease this to 4-5 units instead.. Follow-up with endocrinology is being scheduled for you to follow adjustments with your medications. If you have persistently low, or very high blood sugars please call your primary care physician for recommendations. It may take some time to find a correct requirements for you based on your regular home diet. You have been started on aspirin 81 mg daily. You have been started on atorvastatin 40 mg daily to help prevent progression of peripheral vascular disease. You should have a check of your liver enzymes (LFTs) within 2 weeks performed by your primary care provider. If you develop any new or worsening symptoms including fever, chills, sweats, chest pain, chest pressure, difficulty breathing, uncontrolled nausea/vomiting, rash, wheezing, passing out or nearly passing out, bleeding, black/bloody bowel movements, or other new or concerning symptoms please call your primary care physician, or call 911 for re-evaluation in the emergency department if you are very concerned. Total Time Total Time Spent Total Time Spent (In Minutes): Time spend day of discharge 70 minutes including direct patient care, documentation, review of labs and images, and coordination of care. Approximately 40 minutes of this was spent on counseling regarding insulin regimen Coding Level of Care Code 01076 INP/OBS DISCH >30 MIN Diagnoses Type 2 diabetes mellitus with right diabetic foot ulcer E11.621; L97.519 Dry gangrene I96 Other acute osteomyelitis of right foot M86.171 Laterality: right Osteomyelitis location: foot Osteomyelitis type: other acute Hypertension, essential, benign I10 Tobacco use Z72.0 Uncontrolled type 2 diabetes mellitus with hyperglycemia E11.65
--- NOTE | 2025-05-15 12:38 | Podiatry Progress Note ---
Date of Service May 15, 2025 Assessment & Plan (1) Dry gangrene: (2) Osteomyelitis: (3) Necrosis of toe: (4) Type 2 diabetes mellitus with right diabetic foot ulcer: Plan Patient was examined and evaluated. - Doing well s/p toe amputation. - No significant pain and has kept dressing clean and dry. 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 - Will see at one week and two weeks postoperatively outpatient. Admission and Anticipated Discharge Date Admission Date: May 12, 2025 Physical Exam Physical Exam: Right lower extremity focused exam: DP/PT pulses faintly palpable. CFT brisk to the digits, with the exception of the right second toe. This toe is necrotic to the distal phalanx, extending to the middle of the middle phalanx. There is local erythema and pain on palpation/ROM. There is malodor noted as well without allie purulence or ascending cellulitis. Protective sensation is intact. No abnormal reflexes noted. Muscle strength is equal and full bilateral. Constitutional: WD/WN, vitals as above + ill appearing and + morbidly obese; no acute distress Eyes: PERRL, conjunctivae normal, anicteric sclerae ENMT: external ear and nose normal, oropharynx normal Mouth: + poor dentition Neck: trachea midline, no thyromegaly normal visual inspection Respiratory: normal respiratory effort; no respiratory distress Cardiovascular: Rate/Rhythm: regular rate and regular rhythm Vessels: posterior tibial pulses present and dorsalis pedis pulses present Extremities: + pedal edema and + edema Chest (Breasts): Chest: normal inspection of chest Gastrointestinal (Abdomen): Inspection/Auscultation: abdomen normal to inspection Percussion/Palpation: + abdomen tender and abdomen soft Musculoskeletal: no cyanosis or clubbing, extremities motor strength 5/5 Head/Neck/Chest: normocephalic and head atraumatic Extremities: extremities normal to inspection Skin: + wound and + erythema Neurologic: awake; no focal motor deficits Psychiatric: A+Ox3, euthymic affect Results & Data Results & Data Vital Signs (Past 12 Hours) Vital Signs Temp Pulse Resp BP Pulse Ox O2 Del Method 05/15/25 07:49 36.7 C 73 16 130/73 92 Room Air 05/15/25 02:54 36.8 C 69 18 121/70 94 Room Air (2) Osteomyelitis Laterality: right Osteomyelitis location: foot Osteomyelitis type: other acute Qualified Code(s): M86.171 - Other acute osteomyelitis, right ankle and foot
[2025-05-15 14:32] VITALS: BP 153/72; PULSE 73
--- NOTE | 2025-05-21 14:38 | Operative Report ---
Post Operative Report Pre & Post Diagnosis Operation Date: 05/14/25 14:15 Pre-Op Diagnosis: OSTEOMYELITIS Post-Op Diagnosis: OSTEOMYELITIS I identified the patient and participated in the time-out.: Yes Procedure Operation Date: 05/14/25 14:15 Actual Procedures p Right 2nd Toe Amputation(Right) - Preston Castaneda DPM Surgeon Preston Castaneda DPM Inoculator None Estimated Blood Loss 2 Findings Consistent with Post-Op Diagnosis Specimens Right second toe sent for pathology testing with human resources hr representative sample sent for proximal margin assessment. Anesthesia Type MAC Disposition Accompanied Patient To Recovery: Yes Disposition: Recovery Room Indications This patient is a recent hospital consult of ours who presented to [facility] for treatment of her right second toe infection. She had previously presented for this but was unable to remain inpatient due to scheduling conflicts. She states that she initially believes she bruised this toe or callused this toe but over the last few months it has gotten increasingly painful and black. Prior to this she did not have significant foot and ankle concerns. Now, the toe is significantly mummified with necrosis to the level of the PIPJ. There is no acute infection noted, but the pain is limiting her. We discussed relative risks, outcomes, preoperative instructions and postoperative instructions. Consent was obtained for this right second toe amputation. All questions were answered. Description of Procedure Patient was brought to the operating room placed on the operating table in the supine position. Following ministration of IV sedation, local analgesia was obtained utilizing 20 cc of half percent Marcaine in a local block fashion. The right lower extremity was then scrubbed, prepped, and draped in the usual aseptic manner. No tourniquet was utilized during the duration of the procedure given her level of vascular compromise. Attention was directed to the right second toe where 2 converging semielliptical incisions were made circumferentially around the base of the second toe, roughly at the level of the midshaft of the proximal phalanx. At this level, all necrotic and nonviable tissue was able to be resected and all remaining soft tissue was noted to be viable without evidence of proximal infection. The toe was disarticulated at this level and a sagittal saw was utilized to resect enough of the proximal phalanx for closure primarily. This is what was sent for proximal margin assessment to pathology. The surgical site was then flushed with copious amounts of sterile saline and closure was performed utilizing 2-0 nylon in a simple interrupted fashion. The right lower extremity was then dressed with Xeroform gauze, 4 x 4 gauze, Kerlix, and an Donis wrap. The patient tolerated the procedure well and was transferred to the recovery room with vital signs stable and vascular status intact to the feet. Following postoperative monitoring, she will be transferred back to the floor for further monitoring and likely discharge in the next few days, once pathology results are available. I attest to the content of the Intraoperative Record and any orders documented therein. Any exceptions are noted below.
== END 2025-05-15 14:32 | disposition home or self-care (01) | DRG 617 ==
LOC: ED 13:33 → EDINP 15:26 → SUATTDRO 15:26 → 2N 18:40